=== PATIENT | female | born 1960 | race Caucasian/White ===

== ENCOUNTER 2019-04-27 15:06 | Emergency (ER) | payer MEDICAID, OTHER ==
[~2019-04-27] VITALS: Ht 160 cm; Wt 62.8 kg
[2019-04-27 15:10] VITALS: Ht 160 cm; Wt 62.8 kg
[2019-04-27] MEDS ORDERED: LISI10TA2 PO (15:53)
[2019-04-27] MEDS ORDERED: LEVO25TA6 PO (15:53)
[2019-04-27] MEDS ORDERED: BELLADONNA/PHENOBARBITAL TAB PO STA (16:05)
[2019-04-27] MEDS ORDERED: ONDANSETRON 4 MG INJ IV STA (16:05)
[2019-04-27] MEDS ORDERED: LIDOCAINE/MYLANTA 40 ML BTL PO STA (16:05)
[2019-04-27] MEDS ORDERED: LACTATED RINGER'S 1,000 ML IV STA ×2 (16:05→18:31)
[2019-04-27] MEDS ORDERED: FAMOTIDINE 20 MG TAB PO STA (16:05)
[2019-04-27] MEDS ORDERED: KETOROLAC 15 MG INJ IV STA (16:05)
--- NOTE | 2019-04-27 16:25 | ERD ---
ER Documentation Chief Complaint Chief Complaint AP , HX GALLSTONES X 2 YEARS HPI 59-year-old woman complains of suprapubic and right upper quadrant abdominal pain x4 to 5 days, she states 2 years ago she was diagnosed with gallstones via ultrasonography. She denies back pain, no fevers or chills, no vomiting or diarrhea, no complaints of chest pain or shortness of breath. Abdominal pain has been nonradiating nonexertional ROS All systems reviewed and are negative except as per history of present illness. Medications Home Meds Active Scripts Ondansetron Hcl* (Zofran*) 4 Mg Tablet, 4 MG PO Q8H PRN for NAUSEA AND/OR VOMITING, #30 TAB Prov:JEREMI LOPEZ MD 04/27/19 Ibuprofen* (Motrin*) 600 Mg Tab, 600 MG PO Q8 PRN for PAIN, #30 TAB Prov:JEREMI LOPEZ MD 04/27/19 Cephalexin* (Keflex*) 500 Mg Capsule, 500 MG PO QID for 7 Days, CAP Prov:JEREMI LOPEZ MD 04/27/19 Reported Medications Lisinopril* (Lisinopril*) 10 Mg Tablet, 10 MG PO DAILY, #30 TAB 04/27/19 Levothyroxine Sodium* (Levothyroxine Sodium*) 25 Mcg Tablet, 25 MCG PO BEFORE BREAKFAST, #30 TAB 04/27/19 Allergies Allergies: Coded Allergies: No Known Allergy (Unverified , 04/27/19) PMhx/Soc Anesthesia Reaction: No Hx Neurological Disorder: No Hx Respiratory Disorders: No Hx Cardiac Disorders: No Hx Psychiatric Problems: No Hx Miscellaneous Medical Probl: No Hx Alcohol Use: No Hx Substance Use: No Hx Tobacco Use: No Smoking Status: Never smoker FmHx Family History: No diabetes Physical Exam Vitals Vital Signs Date Temp Pulse Resp B/P (MAP) Pulse Ox O2 O2 Flow FiO2 Time Delivery Rate 04/27/19 98.3 93 19 148/73 100 Room Air 19:44 (98) 04/27/19 98.4 91 18 143/78 99 15:10 (99) Physical Exam GENERAL: Well-developed, well-nourished, well-hydrated, in no apparent distress, looks nontoxic in appearance HEENT: Moist mucous membranes, pink conjunctiva, no cervical spine tenderness or step-off deformities, no goiter, no jaundice or icterus, extraocular movements intact without pain. No submandibular induration, and no pharyngeal erythema NEURO: Alert and oriented 3, cranial nerves II through XII intact bilaterally, pupils equal round reactive to light, no focal deficits or facial asymmetry, sensation intact distally Strength 5/5 in upper and lower extremities bilaterally CARDIAC: Regular rate and rhythm, no murmurs rubs or gallops LUNGS: Clear bilaterally no wheezing crackles or stridor ABDOMEN: Soft nontender, no guarding, no rigidity, no rebound, no psoas sign no obturator sign. Normoactive bowel sounds SKIN: Warm and dry to touch, no abrasions, contusions, or hematomas, no lacerations, no ecchymosis, no target lesions, and without ulcers EXTREMITIES: No clubbing cyanosis or edema, calves are bilaterally symmetrical, no Homans sign, no popliteal cord sign. Distal pulses equal and bilateral PSYCH: Normal affect without agitation or irritability Result Diagram: 04/27/19 1610 04/27/19 1610 Results 24 hrs Laboratory Tests Test 04/27/19 16:10 White Blood Count 12.6 10^3/ul Red Blood Count 5.61 10^6/ul Hemoglobin 13.8 g/dl Hematocrit 43.8 % Mean Corpuscular Volume 78.1 fl Mean Corpuscular Hemoglobin 24.6 pg Mean Corpuscular Hemoglobin Concent 31.5 g/dl Red Cell Distribution Width 14.9 % Platelet Count 227 10^3/UL Mean Platelet Volume 9.4 fl Immature Granulocytes % 0.500 % Neutrophils % 89.5 % Lymphocytes % 6.6 % Monocytes % 3.2 % Eosinophils % 0.0 % Basophils % 0.2 % Nucleated Red Blood Cells % 0.0 /100WBC Immature Granulocytes # 0.060 10^3/ul Neutrophils # 11.3 10^3/ul Lymphocytes # 0.8 10^3/ul Monocytes # 0.4 10^3/ul Eosinophils # 0.0 10^3/ul Basophils # 0.0 10^3/ul Nucleated Red Blood Cells # 0.0 10^3/ul Urine Color CARMELA Urine Clarity CLOUDY Urine pH 6.0 Urine Specific [place] 1.021 Urine Ketones TRACE mg/dL Urine Nitrite POSITIVE mg/dL Urine Bilirubin NEGATIVE mg/dL Urine Urobilinogen 1+ mg/dL Urine Leukocyte Esterase 1+ Jesenia/ul Urine Microscopic RBC 2 /HPF Urine Microscopic WBC 52 /HPF Urine Squamous Epithelial Cells MODERATE /HPF Urine Bacteria FEW /HPF Urine Mucus MANY /HPF Urine Hemoglobin NEGATIVE mg/dL Urine Glucose NEGATIVE mg/dL Urine Total Protein NEGATIVE mg/dl Sodium Level 145 mmol/L Potassium Level 4.8 mmol/L Chloride Level 105 mmol/L Carbon Dioxide Level 29 mmol/L Anion Gap 11 Blood Urea Nitrogen 11 mg/dl Creatinine 0.67 mg/dl Est Glomerular Filtrat Rate mL/min > 60 mL/min Glucose Level 164 mg/dl Calcium Level 9.4 mg/dl Total Bilirubin 0.8 mg/dl Direct Bilirubin 0.00 mg/dl Indirect Bilirubin 0.8 mg/dl Aspartate Amino Transf (AST/SGOT) 147 IU/L Alanine Aminotransferase (ALT/SGPT) 105 IU/L Alkaline Phosphatase 179 IU/L Troponin I < 0.012 ng/ml Total Protein 8.6 g/dl Albumin 4.5 g/dl Globulin 4.10 g/dl Albumin/Globulin Ratio 1.09 Lipase 3924 U/L Current Medications Medications Dose Sig/Wen Start Time Status Last (Trade) Ordered Route PRN Stop Time Admin Dose Reason Admin Lactated 1,000 ml @ Q1H STAT 04/27/19 DC 04/27/19 Ringer's 1,000 mls/hr IV 16:05 16:19 04/27/19 17:04 Ondansetron 4 mg ONCE STAT 04/27/19 DC 04/27/19 HCl (Zofran IV 16:05 16:20 Inj) 04/27/19 16:07 Famotidine 20 mg ONCE STAT 04/27/19 DC 04/27/19 (Pepcid) PO 16:05 16:19 04/27/19 16:07 40 ml ONCE STAT 04/27/19 DC 04/27/19 Miscellaneous PO 16:05 16:20 Medication 04/27/19 16:07 (Gi Cocktail (2)) Belladonna/ 2 tab ONCE STAT 04/27/19 DC 04/27/19 Phenobarbital PO 16:05 16:20 () 04/27/19 16:07 Ketorolac 15 mg ONCE STAT 04/27/19 DC 04/27/19 Tromethamine IV 16:05 16:19 (Toradol) 6/11/19 16:07 Ceftriaxone 50 ml @ ONCE ONCE 04/27/19 DC 04/27/19 Sodium 100 mls/hr IVPB 19:00 18:42 04/27/19 19:29 Lactated 1,000 ml @ Q1H STAT 04/27/19 DC 04/27/19 Ringer's 1,000 mls/hr IV 18:31 18:42 04/27/19 19:30 Procedures/MDM IV line was established 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 Patient was afebrile EKG performed, read by me: 82 bpm, normal sinus rhythm, normal axis, no acute ST segment changes, narrow QRS complex, with good R-wave progression in precordial leads. I administered 1 L LR IV, Toradol 15mg IV, Zofran 4 mg IV, GI cocktail p.o., famotidine p.o. Gallbladder ultrasound revealed gallstones, no signs of cholecystitis although gallstones were noted and CBD was borderline dilated CBC was unremarkable, electrolytes within normal limits, liver function tests revealed transaminitis, lipase level elevated at 3924, urine analysis positive for infection Patient received 2 L LR IV, ceftriaxone 1 g IV, Toradol 15 mg IV, Zofran 4 mg IV, GI cocktail p.o., famotidine p.o. Patient's pain completely resolved and vital signs are normal, she is afebrile. She will require admission to [facility] for MRCP and GI consultation Patient's sons Sander [phone], Andre [phone] Departure Diagnosis: Primary Impression: Acute gallstone pancreatitis Additional Impression: Acute UTI Condition: Stable JEREMI LOPEZ MD Apr 27, 2019 16:25
[2019-04-27] MEDS ORDERED: CEPH-443 PO (18:49)
[2019-04-27] MEDS ORDERED: ONDA4TAB8 PO (18:49)
[2019-04-27] MEDS ORDERED: IBUP-1542 PO (18:49)
[2019-04-27] MEDS ORDERED: CEFTRIAXONE 1 GM/50 ML (PMX) 50 ML IVPB ONE (19:00)
[2019-04-27 19:44] VITALS: BP 148/73; PULSE 93; RESP 19
== END 2019-04-27 19:45 | disposition home or self-care (01) ==
LOC: E/R 15:06
DX: K85.10 Biliary acute pancreatitis without necrosis or infection (principal); N39.0 Urinary tract infection, site not specified
CPT/HCPCS: 36415; 76705; 80053; 81001; 83690; 84484; 85025; 93005; 96374; 96375; J0696; J1885; J2405; J7120; Z7502; Z7610

== ENCOUNTER 2019-04-27 20:20 | Inpatient (IN) | payer OTHER ==
[~2019-04-27] VITALS: Ht 160 cm; Wt 63.0 kg
[~2019-04-27 20:20] MED LIST: CEPH-443 PO; IBUP-1542 PO; LEVO25TA6 PO; LISI10TA2 PO; ONDA4TAB8 PO
[2019-04-27] MEDS ORDERED: HYDROmorphONE 1 MG/ML SYG IV STA (20:29)
[2019-04-27] MEDS ORDERED: SOD CHLORIDE 0.9% 1,000 ML IV STA (20:29)
[2019-04-27] MEDS ORDERED: ONDANSETRON 4 MG INJ IV STA (20:29)
--- NOTE | 2019-04-27 20:29 | EN ---
Date/Time of Note Date/Time of Note DATE: 04/27/19 TIME: 20:28 ER Progress Note I administered hydromorphone 1 mg IV and 1 L normal saline IV. Please refer to earlier dictation for full ER course, medical decision making, imaging results, and diagnostic impression. Initial account [id number]. Patient admitted to her health insurance directed physician engineer second assistant to Medr floor. JEREMI LOPEZ MD Apr 27, 2019 20:29
[2019-04-27] MEDS ORDERED: ONDANSETRON 4 MG INJ IV PRN (22:00)
[2019-04-27 22:24] VITALS: BP 140/70; PULSE 74; RESP 18; Ht 160 cm; Wt 63.0 kg
[2019-04-27] MEDS: DEXTROSE 5%-0.45% NACL 1,000 ML IV SCH (22:54)
[2019-04-27] MEDS: PIPER-TAZO 3.375 GM IV (PMX) 100 ML IVPB SCH (22:55)
[2019-04-28] MEDS: morphine 2 MG INJ IV PRN ×4 (01:06→19:29)
[2019-04-28 01:12] VITALS: BP 138/73; PULSE 100; RESP 20
[2019-04-28] MEDS: PIPER-TAZO 3.375 GM IV (PMX) 100 ML IVPB SCH ×3 (06:03→20:57)
[2019-04-28] MEDS: LEVOTHYROXINE 100 MCG VIAL IV SCH (06:04)
[2019-04-28] MEDS: DEXTROSE 5%-0.45% NACL 1,000 ML IV SCH ×3 (08:00→22:36)
[2019-04-28 08:25] VITALS: BP 125/62; PULSE 102; RESP 20
--- NOTE | 2019-04-28 13:38 | CONS ---
Assessment/Plan Assessment/Plan Hospital Course (Demo Recall) Summary Assessment and Plan: Assessment: Gallstone pancreatitis Elevated LFTs with a normal bilirubin Hypertension Hypothyroidism Plan: Keep n.p.o. Recommend hyperhydration for pancreatitis Medication as needed MRCP pending. If positive will proceed with ERCP after pancreatitis has improved/resolved Patient seen in collaboration with Dr. Osborne CC: CARLOS OSBORNE MD ; Consultation Date/Type/Reason Admit Date/Time Apr 27, 2019 at 20:31 Date of Consultation: Apr 28, 2019 Type of Consult GI Reason for Consultation Gallstone pink otitis Date/Time of Note DATE: 04/28/19 TIME: 13:36 Hx of Present Illness This is a 59-year-old female with past medical history of cholelithiasis, hypertension, hypothyroidism who presented to the hospital with complaints of progressive gastric pain radiating to the right upper quadrant associated with nausea and vomiting x1. Patient presented to the ED was ultimately diagnosed with gallstone pancreatitis including a lipase of 3924. With elevated LFTS and a normal bilirubin. She is currently n.p.o. and MRCP has been ordered which is currently pending is been consulted for further evaluation rule out choledocholithiasis. At time evaluation patient is n.p.o. she continues to complain of upper abdominal pain 5 out of 10 with the use of pain medication discussed plan for MRCP pending results will provide further recommendations Review of Systems: A 12 system, review was conducted and is negative except as noted in the HPI or here. Past Medical History Home Meds Active Scripts Ondansetron Hcl* (Zofran*) 4 Mg Tablet, 4 MG PO Q8H PRN for NAUSEA AND/OR VOMITING, #30 TAB Prov:JEREMI LOPEZ MD 04/27/19 Ibuprofen* (Motrin*) 600 Mg Tab, 600 MG PO Q8 PRN for PAIN, #30 TAB Prov:JEREMI LOPEZ MD 04/27/19 Cephalexin* (Keflex*) 500 Mg Capsule, 500 MG PO QID for 7 Days, CAP Prov:JEREMI LOPEZ MD 04/27/19 Reported Medications Lisinopril* (Lisinopril*) 10 Mg Tablet, 10 MG PO DAILY, #30 TAB 04/27/19 Levothyroxine Sodium* (Levothyroxine Sodium*) 25 Mcg Tablet, 25 MCG PO BEFORE BREAKFAST, #30 TAB 04/27/19 Medications Current Medications Dextrose/Sodium Chloride 1,000 ml @ 100 mls/hr Q10H IV Last administered on 04/28/19at 10:38; Admin Dose 100 MLS/HR; Start 04/27/19 at 22:00 Piperacillin Sod/ Tazobactam Sod 100 ml @ 200 mls/hr Q8 IVPB Last administered on 04/28/19at 13:15; Admin Dose 200 MLS/HR; Start 04/27/19 at 22:00 Ondansetron HCl (Zofran Inj) 4 mg Q4 PRN IV nausea; Start 04/27/19 at 22:00 Morphine Sulfate (morphine) 2 mg Q3 PRN IV pain Last administered on 04/28/19at 08:22; Admin Dose 2 MG; Start 04/27/19 at 22:00 Levothyroxine Sodium (Synthroid Iv) 20 mcg DAILY@06 IV Last administered on 04/28/19at 06:04; Admin Dose 20 MCG; Start 04/28/19 at 06:00 Allergies: Coded Allergies: No Known Allergy (Unverified , 04/27/19) Social History Smoking Status: Never smoker Exam/Review of Systems Exam Vitals Vital Signs Date Temp Pulse Resp B/P (MAP) Pulse Ox O2 O2 Flow FiO2 Time Delivery Rate 04/28/19 98.2 12:18 04/28/19 102 20 125/62 93 Room Air 08:25 (83) Intake and Output 04/27/19 04/27/19 04/28/19 1515:00 23:00 07:00 IntakeIntake Total 750 ml OutputOutput Total 150 ml BalanceBalance -150 ml 750 ml Exam PHYSICAL EXAMINATION: GENERAL: Well developed, well nourished, alert & oriented x 3, in no acute distress SKIN: No lesions HEAD: Normocephalic, atraumatic, no tenderness. EYES: Pupils equal reactive to light, no discharge. EARS/NOSE AND THROAT: Ears normal, nose normal, oropharynx normal, oral membranes well hydrated without lesions. NECK: Supple, no masses,. CHEST: Inspection within normal limits. CARDIOVASCULAR: Heart: Regular rate and rhythm, RESPIRATORY: Lungs clear to auscultation GASTROINTESTINAL AND LIVER: Abdomen: Soft, upper abdominal pain 5/10-worse to right upper quadrant, normoactive bowel sounds. Rectal: Deferred. EXTREMITIES: No cyanosis, clubbing or edema. Medications Medication Current Medications Dextrose/Sodium Chloride 1,000 ml @ 100 mls/hr Q10H IV Last administered on 04/28/19 10:38; Admin Dose 100 MLS/HR; Start 04/27/19 at 22:00 Piperacillin Sod/ Tazobactam Sod 100 ml @ 200 mls/hr Q8 IVPB Last administered on 04/28/19 13:15; Admin Dose 200 MLS/HR; Start 04/27/19 at 22:00 Ondansetron HCl (Zofran Inj) 4 mg Q4 PRN IV nausea; Start 04/27/19 at 22:00 Morphine Sulfate (morphine) 2 mg Q3 PRN IV pain Last administered on 04/28/19at 08:22; Admin Dose 2 MG; Start 04/27/19 at 22:00 Levothyroxine Sodium (Synthroid Iv) 20 mcg DAILY@06 IV Last administered on 04/28/19 06:04; Admin Dose 20 MCG; Start 04/28/19 at 06:00 JONNY CHINO Apr 28, 2019 13:38
[2019-04-28 13:45] VITALS: BP 126/62; RESP 19
--- NOTE | 2019-04-28 14:00 | HP ---
Date/Time of Note Date/Time of Note DATE: 04/28/19 TIME: 13:53 Assessment/Plan VTE Prophylaxis Risk score (from Ns)>0 risk: 1 SCD applied (from Ns): Yes Pharmacological prophylaxis: heparin Lines/Catheters IV Catheter Type (from Nrsg): Peripheral IV Assessment/Plan Problems: (1) Acute UTI Status: Acute (2) Acute gallstone pancreatitis Status: Acute Assessment/Plan Admit to [facility] unit IV Zosyn MRCP and GI consult Surgical consult according to MRCP results Pain and nausea management PPX: Heparin and Pepcid HPI/ROS Admit Date/Time Admit Date/Time Apr 27, 2019 at 20:31 Hx of Present Illness 59 years old female with a history of hypothyroidism, cholelithiasis who presented with epigastric abdominal pain for 1 day yesterday. She was discharged home from the emergency room. She returned to the emergency room today when elevated liver enzymes and lipase were noted. Abdominal ultrasound was significant for Heterogeneous pancreas with a slightly dilated pancreatic duct. She was then admitted for further evaluation and treatment of gallstone pancreatitis. As part of the work-up urinalysis was done which was positive. Patient denies change in bowel habits. Denies hematemesis, hematochezia, melena. Denies flank pain. Denies dysuria, urinary frequency. Denies vaginal bleeding. Denies fever or chills. Denies weight loss or weight gain. PMH/Family/Social Past Medical History Medications Current Medications Dextrose/Sodium Chloride 1,000 ml @ 100 mls/hr Q10H IV Last administered on 04/28/19at 10:38; Admin Dose 100 MLS/HR; Start 04/27/19 at 22:00 Piperacillin Sod/ Tazobactam Sod 100 ml @ 200 mls/hr Q8 IVPB Last administered on 04/28/19at 13:15; Admin Dose 200 MLS/HR; Start 04/27/19 at 22:00 Ondansetron HCl (Zofran Inj) 4 mg Q4 PRN IV nausea; Start 04/27/19 at 22:00 Morphine Sulfate (morphine) 2 mg Q3 PRN IV pain Last administered on 04/28/19at 08:22; Admin Dose 2 MG; Start 04/27/19 at 22:00 Levothyroxine Sodium (Synthroid Iv) 20 mcg DAILY@06 IV Last administered on 04/28/19at 06:04; Admin Dose 20 MCG; Start 04/28/19 at 06:00 Coded Allergies: No Known Allergy (Unverified , 04/27/19) Social History Smoking Status: Never smoker Exam/Review of Systems Vital Signs Vitals Vital Signs Date Temp Pulse Resp B/P (MAP) Pulse Ox O2 O2 Flow FiO2 Time Delivery Rate 04/28/19 98.2 12:18 04/28/19 102 20 125/62 93 Room Air 08:25 (83) Intake and Output 04/27/19 04/27/19 04/28/19 1515:00 23:00 07:00 IntakeIntake Total 750 ml OutputOutput Total 150 ml BalanceBalance -150 ml 750 ml Exam Exam Gen.: In no acute distress, pleasant and cooperative Eyes: Anicteric, conjunctiva normal, PERRLA, EOM intact HEENT: Normocephalic, atraumatic, hearing grossly intact, oral mucosa moist, no oral lesions Neck: Supple, no masses, trachea midline Cardiovascular: Regular rate and rhythm, no peripheral edema, no murmurs, no gallops, no rubs Respiratory: Clear to auscultation bilaterally, no use of accessory muscles of respiration, no wheezes, expiration not prolonged Extremities: No cyanosis, no edema, no calf tenderness, pulses bilaterally palpable, extremities warm and perfused Abdomen: Soft, not distended, tender to light palpation in right upper quadrant and epigastric area, bowel sounds present, no guarding, no rebound Neurological: Alert and oriented x3, speech normal, CN 2-12 no deficit, no motor or sensory deficit, coordination normal : No Delarosa catheter Dermatologic no rash, no ulcers Heme: No acute bleeding, no ecchymosis or petechia Psych: No anxiety depression, mood and affect appropriate LANIE BANKS MD Apr 28, 2019 14:00
[2019-04-28 19:40] VITALS: BP 130/65; PULSE 99; RESP 20
[2019-04-28] MEDS: FAMOTIDINE 20 MG INJ IV SCH (20:57)
[2019-04-28] MEDS: HEPARIN 5,000 UNIT/1 ML VIAL SC SCH (21:02)
[2019-04-28] MEDS ORDERED: ACETAMINOPHEN 500 MG TAB PO PRN (21:30)
[2019-04-29 02:00] VITALS: BP 96/59; PULSE 80; RESP 20
[2019-04-29] MEDS: PIPER-TAZO 3.375 GM IV (PMX) 100 ML IVPB SCH ×3 (05:26→21:59)
[2019-04-29] MEDS: LEVOTHYROXINE 100 MCG VIAL IV SCH (05:26)
[2019-04-29 08:18] VITALS: BP 115/58; PULSE 91; RESP 18
[2019-04-29] MEDS: FAMOTIDINE 20 MG INJ IV SCH ×2 (08:40→20:35)
[2019-04-29] MEDS: DEXTROSE 5%-0.45% NACL 1,000 ML IV SCH ×2 (08:41→19:21)
[2019-04-29] MEDS: HEPARIN 5,000 UNIT/1 ML VIAL SC SCH (08:42)
[2019-04-29] MEDS: morphine 2 MG INJ IV PRN ×2 (09:32→13:06)
--- NOTE | 2019-04-29 12:43 | CONS ---
Assessment/Plan Assessment/Plan Hospital Course (Demo Recall) 1. Gallstone pancreatitis: Improved -Aggressive IV Fluid -Okay for liquid diet -0 pain management 2. Cholelithiasis, concern for cholecystitis: -Discussed surgical options with patient and patient agreeable for cholecystectomy> will schedule -Antibiotics 3.Leukocytosis: -As above -Trend 4. Microcytic hypochromic anemia: -Monitor and transfuse as needed -Further work-up per medical team 5. Hypothyroidism -Medical management 6. Overweight BMI: 25 -diet and exercise optimization -encourage weight loss Thank you. Patient seen and examined in collaboration with Dr. Freddie Strange. Consultation Date/Type/Reason Admit Date/Time Apr 27, 2019 at 20:31 Type of Consult surgical Reason for Consultation gallstones Requesting Provider: LANIE BANKS MD Date/Time of Note DATE: 04/29/19 TIME: 12:34 Hx of Present Illness Blanquita Solares is a 59-year-old woman with past medical history of hypothyroidism and cholelithiasis who presented to the ED with complaints of abdominal pain x1 day. Abdominal pain is predominantly in the mid epigastric region with radiation to bilateral upper quadrants, strong in nature. She reports that this pain is similar to when she experienced several years ago where she was initially diagnosed with gallstones. Associated symptoms include recent fevers. She denies,chills chest pain, palpitations, nausea, vomiting, hematemesis, change in bowel or bladder habits, dysuria, skin or scleral changes. On further work-up, she was noted to have elevated liver enzymes as well as lipase. Abdominal imaging noted cholelithiasis with borderline gallbladder wall thickening as well as mild jimenez-cholecystic fluid. Addition ally noted was moderate inflammatory changes around pancreas consistent with acute pancreatitis. General surgery was asked to evaluate. 12 point ros was performed and is negative except as stated in hpi Past Medical History As above Home Meds Active Scripts Ondansetron Hcl* (Zofran*) 4 Mg Tablet, 4 MG PO Q8H PRN for NAUSEA AND/OR VOMITING, #30 TAB Prov:JEREMI LOPEZ MD 04/27/19 Ibuprofen* (Motrin*) 600 Mg Tab, 600 MG PO Q8 PRN for PAIN, #30 TAB Prov:JEREMI LOPEZ MD 04/27/19 Cephalexin* (Keflex*) 500 Mg Capsule, 500 MG PO QID for 7 Days, CAP Prov:JEREMI LOPEZ MD 04/27/19 Reported Medications Lisinopril* (Lisinopril*) 10 Mg Tablet, 10 MG PO DAILY, #30 TAB 04/27/19 Levothyroxine Sodium* (Levothyroxine Sodium*) 25 Mcg Tablet, 25 MCG PO BEFORE BREAKFAST, #30 TAB 04/27/19 Medications Current Medications Dextrose/Sodium Chloride 1,000 ml @ 100 mls/hr Q10H IV Last administered on 04/29/19at 08:41; Admin Dose 100 MLS/HR; Start 04/27/19 at 22:00 Piperacillin Sod/ Tazobactam Sod 100 ml @ 200 mls/hr Q8 IVPB Last administered on 04/29/19 05:26; Admin Dose 200 MLS/HR; Start 04/27/19 at 22:00 Ondansetron HCl (Zofran Inj) 4 mg Q4 PRN IV nausea; Start 04/27/19 at 22:00 Morphine Sulfate (morphine) 2 mg Q3 PRN IV pain Last administered on 04/29/19at 09:32; Admin Dose 2 MG; Start 04/27/19 at 22:00 Levothyroxine Sodium (Synthroid Iv) 20 mcg DAILY@06 IV Last administered on 04/29/19 05:26; Admin Dose 20 MCG; Start 04/28/19 at 06:00 Famotidine (Pepcid Iv) 20 mg BID IV Last administered on 04/29/19 08:40; Admin Dose 20 MG; Start 04/28/19 at 21:00 Heparin Sodium (Porcine) (Heparin (5000 Units/1ml)) 5,000 unit BID SC Last administered on 04/29/19 08:42; Admin Dose 5,000 UNIT; Start 04/28/19 at 21:00 Acetaminophen (Tylenol Tab) 1,000 mg Q6H PRN PO MILD PAIN(1-3)OR ELEVATED TEMP Last administered on 04/28/19 22:33; Admin Dose 1,000 MG; Start 04/28/19 at 21:30 Allergies: Coded Allergies: No Known Allergy (Unverified , 04/27/19) Past Surgical History Family History Significant Family History: no pertinent family hx Social History Alcohol Use: occasionally Smoking Status: Never smoker Drug Use: none Exam/Review of Systems Exam Vitals Vital Signs Date Temp Pulse Resp B/P (MAP) Pulse Ox O2 O2 Flow FiO2 Time Delivery Rate 04/29/19 98.2 91 18 115/58 92 Room Air 08:18 (77) Intake and Output 04/28/19 04/28/19 04/29/19 1515:00 23:00 07:00 IntakeIntake Total 550 ml 1100 ml 600 ml BalanceBalance 550 ml 1100 ml 600 ml Constitutional: alert, oriented Psych: nl mood/affect; No anxiety Head: normocephalic, atraumatic Eyes: nl conjunctiva, EOMI, nl lids, nl sclera ENMT: nl external ears & nose, nl lips & teeth, mucosa pink and moist Neck: supple, non-tender; No jvd Respiratory: normal air movement; No congested cough Cardiovascular: regular rate and rhythm, nl pulses; No edema Gastrointestinal: soft, tender (Bilateral upper quadrants; negative Valle's by palpation) Genitourinary - Female: nl external genitalia Musculoskeletal: nl extremities to inspection, nl gait and stance Extremities: normal pulses Neurological: nl mental status, nl speech, nl strength Skin: No rash or lesions Lymph: nl lymph nodes Results Result Diagram: 04/29/19 0458 04/29/19 0458 Results 24hrs Laboratory Tests Test 04/29/19 04:58 04/29/19 09:12 White Blood Count 11.4 H Red Blood Count 4.39 # Hemoglobin 10.7 #L Hematocrit 34.8 #L Mean Corpuscular Volume 79.3 L Mean Corpuscular Hemoglobin 24.4 L Mean Corpuscular Hemoglobin Concent 30.7 L Red Cell Distribution Width 15.3 H Platelet Count 170 # Mean Platelet Volume 10.2 Immature Granulocytes % 0.800 H Neutrophils % 77.6 H Lymphocytes % 13.7 L Monocytes % 7.6 Eosinophils % 0.0 Basophils % 0.3 Nucleated Red Blood Cells % 0.0 Immature Granulocytes # 0.090 H Neutrophils # 8.9 H Lymphocytes # 1.6 Monocytes # 0.9 Eosinophils # 0.0 Basophils # 0.0 Nucleated Red Blood Cells # 0.0 Sodium Level 142 Potassium Level 3.7 Chloride Level 106 Carbon Dioxide Level 30 Anion Gap 6 Blood Urea Nitrogen 6 L Creatinine 0.57 Est Glomerular Filtrat Rate mL/min > 60 Glucose Level 128 Calcium Level 8.3 L Phosphorus Level 2.9 Magnesium Level 2.2 Total Bilirubin 0.8 Direct Bilirubin 0.00 Indirect Bilirubin 0.8 Aspartate Amino Transf (AST/SGOT) 32 Alanine Aminotransferase (ALT/SGPT) 46 Alkaline Phosphatase 96 Total Protein 6.7 # Albumin 3.5 # Globulin 3.20 Albumin/Globulin Ratio 1.09 Lipase 325 H Medications Medication Current Medications Dextrose/Sodium Chloride 1,000 ml @ 100 mls/hr Q10H IV Last administered on 04/29/19 08:41; Admin Dose 100 MLS/HR; Start 04/27/19 at 22:00 Piperacillin Sod/ Tazobactam Sod 100 ml @ 200 mls/hr Q8 IVPB Last administered on 04/29/19 05:26; Admin Dose 200 MLS/HR; Start 04/27/19 at 22:00 Ondansetron HCl (Zofran Inj) 4 mg Q4 PRN IV nausea; Start 04/27/19 at 22:00 Morphine Sulfate (morphine) 2 mg Q3 PRN IV pain Last administered on 04/29/19 09:32; Admin Dose 2 MG; Start 04/27/19 at 22:00 Levothyroxine Sodium (Synthroid Iv) 20 mcg DAILY@06 IV Last administered on 04/29/19 05:26; Admin Dose 20 MCG; Start 04/28/19 at 06:00 Famotidine (Pepcid Iv) 20 mg BID IV Last administered on 04/29/19 08:40; Admin Dose 20 MG; Start 04/28/19 at 21:00 Heparin Sodium (Porcine) (Heparin (5000 Units/1ml)) 5,000 unit BID SC Last administered on 04/29/19 08:42; Admin Dose 5,000 UNIT; Start 04/28/19 at 21:00 Acetaminophen (Tylenol Tab) 1,000 mg Q6H PRN PO MILD PAIN(1-3)OR ELEVATED TEMP Last administered on 04/28/19 22:33; Admin Dose 1,000 MG; Start 04/28/19 at 21:30 MECCA KIM NP Apr 29, 2019 12:43
--- NOTE | 2019-04-29 13:26 | PN ---
Date/Time of Note Date/Time of Note DATE: 04/29/19 TIME: 13:24 Assessment/Plan VTE Prophylaxis Risk score (from Ns)>0 risk: 2 SCD applied (from Nsg): Yes Pharmacological prophylaxis: other (scds) Lines/Catheters IV [facility]ter [facility] (from [facility]): Peripheral IV Assessment/Plan Hospital Course Summary Assessment and Plan: Assessment: Gallstone pancreatitis- imporved -MRCP-Cholelithiasis is present with indeterminate finding for cholecystitis. No intraductal stones are visible on MRCP Cholecystitis versus symptomatic cholelithiasis Elevated LFTs with normal bilirubin-resolved Microcytic anemia Hypertension Hypothyroidism Plan: Patient evaluated by surgery plan for cholecystectomy near future Patient is been started on liquid diet Continue supportive care Patient seen in collaboration with Dr. Osborne Subjective: Course reviewed with nursing staff Patient interviewed and examined All labs, imaging and other results reviewed The patient states she feels better today Currently abd pain is about 2/10 with pain medication Pain can get up to 6-8/10 without medication- this abd pain is localized to RUQ likely 2/2 cholecystitis PHYSICAL EXAMINATION: GENERAL: Well developed, well nourished, alert & oriented x 3, in no acute distress SKIN: No lesions HEAD: Normocephalic, atraumatic, no tenderness. EYES: Pupils equal reactive to light, no discharge. EARS/NOSE AND THROAT: Ears normal, nose normal, oropharynx normal, oral membranes well hydrated without lesions. NECK: Supple, no masses,. CHEST: Inspection within normal limits. CARDIOVASCULAR: Heart: Regular rate and rhythm, RESPIRATORY: Lungs clear to auscultation GASTROINTESTINAL AND LIVER: Abdomen: Soft, upper abdominal pain 5/10-worse to right upper quadrant, normoactive bowel sounds. Rectal: Deferred. EXTREMITIES: No cyanosis, clubbing or edema. Result Diagram: 04/29/19 0458 04/29/19 0458 Results 24hrs Laboratory Tests Test 04/29/19 04:58 04/29/19 09:12 White Blood Count 11.4 H Red Blood Count 4.39 # Hemoglobin 10.7 #L Hematocrit 34.8 #L Mean Corpuscular Volume 79.3 L Mean Corpuscular Hemoglobin 24.4 L Mean Corpuscular Hemoglobin Concent 30.7 L Red Cell Distribution Width 15.3 H Platelet Count 170 # Mean Platelet Volume 10.2 Immature Granulocytes % 0.800 H Neutrophils % 77.6 H Lymphocytes % 13.7 L Monocytes % 7.6 Eosinophils % 0.0 Basophils % 0.3 Nucleated Red Blood Cells % 0.0 Immature Granulocytes # 0.090 H Neutrophils # 8.9 H Lymphocytes # 1.6 Monocytes # 0.9 Eosinophils # 0.0 Basophils # 0.0 Nucleated Red Blood Cells # 0.0 Sodium Level 142 Potassium Level 3.7 Chloride Level 106 Carbon Dioxide Level 30 Anion Gap 6 Blood Urea Nitrogen 6 L Creatinine 0.57 Est Glomerular Filtrat Rate mL/min > 60 Glucose Level 128 Calcium Level 8.3 L Phosphorus Level 2.9 Magnesium Level 2.2 Total Bilirubin 0.8 Direct Bilirubin 0.00 Indirect Bilirubin 0.8 Aspartate Amino Transf (AST/SGOT) 32 Alanine Aminotransferase (ALT/SGPT) 46 Alkaline Phosphatase 96 Total Protein 6.7 # Albumin 3.5 # Globulin 3.20 Albumin/Globulin Ratio 1.09 Lipase 325 H Exam/Review of Systems Exam Vitals Vital Signs Date Temp Pulse Resp B/P (MAP) Pulse Ox O2 O2 Flow FiO2 Time Delivery Rate 04/29/19 98.2 91 18 115/58 92 Room Air 08:18 (77) Intake and Output 04/28/19 04/28/19 04/29/19 1515:00 23:00 07:00 IntakeIntake Total 550 ml 1100 ml 600 ml BalanceBalance 550 ml 1100 ml 600 ml Results Results 24hrs Laboratory Tests Test 04/29/19 04:58 04/29/19 09:12 White Blood Count 11.4 H Red Blood Count 4.39 # Hemoglobin 10.7 #L Hematocrit 34.8 #L Mean Corpuscular Volume 79.3 L Mean Corpuscular Hemoglobin 24.4 L Mean Corpuscular Hemoglobin Concent 30.7 L Red Cell Distribution Width 15.3 H Platelet Count 170 # Mean Platelet Volume 10.2 Immature Granulocytes % 0.800 H Neutrophils % 77.6 H Lymphocytes % 13.7 L Monocytes % 7.6 Eosinophils % 0.0 Basophils % 0.3 Nucleated Red Blood Cells % 0.0 Immature Granulocytes # 0.090 H Neutrophils # 8.9 H Lymphocytes # 1.6 Monocytes # 0.9 Eosinophils # 0.0 Basophils # 0.0 Nucleated Red Blood Cells # 0.0 Sodium Level 142 Potassium Level 3.7 Chloride Level 106 Carbon Dioxide Level 30 Anion Gap 6 Blood Urea Nitrogen 6 L Creatinine 0.57 Est Glomerular Filtrat Rate mL/min > 60 Glucose Level 128 Calcium Level 8.3 L Phosphorus Level 2.9 Magnesium Level 2.2 Total Bilirubin 0.8 Direct Bilirubin 0.00 Indirect Bilirubin 0.8 Aspartate Amino Transf (AST/SGOT) 32 Alanine Aminotransferase (ALT/SGPT) 46 Alkaline Phosphatase 96 Total Protein 6.7 # Albumin 3.5 # Globulin 3.20 Albumin/Globulin Ratio 1.09 Lipase 325 H Medications Medication Current Medications Dextrose/Sodium Chloride 1,000 ml @ 100 mls/hr Q10H IV Last administered on 04/29/19 08:41; Admin Dose 100 MLS/HR; Start 04/27/19 at 22:00 Piperacillin Sod/ Tazobactam Sod 100 ml @ 200 mls/hr Q8 IVPB Last administered on 04/29/19 13:06; Admin Dose 200 MLS/HR; Start 04/27/19 at 22:00 Ondansetron HCl (Zofran Inj) 4 mg Q4 PRN IV nausea; Start 04/27/19 at 22:00 Morphine Sulfate (morphine) 2 mg Q3 PRN IV pain Last administered on 04/29/19 13:06; Admin Dose 2 MG; Start 04/27/19 at 22:00 Levothyroxine Sodium (Synthroid Iv) 20 mcg DAILY@06 IV Last administered on 04/29/19 05:26; Admin Dose 20 MCG; Start 04/28/19 at 06:00 Famotidine (Pepcid Iv) 20 mg BID IV Last administered on 04/29/19 08:40; Admin Dose 20 MG; Start 04/28/19 at 21:00 Heparin Sodium (Porcine) (Heparin (5000 Units/1ml)) 5,000 unit BID SC Last administered on 04/29/19 08:42; Admin Dose 5,000 UNIT; Start 04/28/19 at 21:00; Status Hold Acetaminophen (Tylenol Tab) 1,000 mg Q6H PRN PO MILD PAIN(1-3)OR ELEVATED TEMP Last administered on 04/28/19 22:33; Admin Dose 1,000 MG; Start 04/28/19 at 21:30 JONNY CHINO Apr 29, 2019 13:26
[2019-04-29 14:07] VITALS: BP 122/59; PULSE 95; RESP 18
--- NOTE | 2019-04-29 15:01 | PREAC ---
Date/Time of Note Date/Time of Note DATE: 04/29/19 TIME: 15:01 Anesthesia Eval and Record Evaluation Time Pre-Procedure Interview DATE: 04/29/19 TIME: 15:00 Age 59 Sex female NPO: 8 hrs Preoperative diagnosis Acute gallstone pancreatitis Planned procedure LAPAROSCOPIC CHOLECYSTECTOMY POSS OPEN Past Medical History Past Medical History: Includes Cardio: HTN Endo: Hypothyroid Heme: Anemia Surgery & Anesthesia Issues No known issue Meds Anticoagulation: No Beta Cam within 24 hr: No Reason Beta Cam not given: Pt. not on B-Cam Active Scripts Ondansetron Hcl* (Zofran*) 4 Mg Tablet, 4 MG PO Q8H PRN for NAUSEA AND/OR VOMITING, #30 TAB Prov:JEREMI LOPEZ MD 04/27/19 Ibuprofen* (Motrin*) 600 Mg Tab, 600 MG PO Q8 PRN for PAIN, #30 TAB Prov:JEREMI LOPEZ MD 04/27/19 Cephalexin* (Keflex*) 500 Mg Capsule, 500 MG PO QID for 7 Days, CAP Prov:JEREMI LOPEZ MD 04/27/19 Reported Medications Lisinopril* (Lisinopril*) 10 Mg Tablet, 10 MG PO DAILY, #30 TAB 04/27/19 Levothyroxine Sodium* (Levothyroxine Sodium*) 25 Mcg Tablet, 25 MCG PO BEFORE BREAKFAST, #30 TAB 04/27/19 Current Medications Dextrose/Sodium Chloride 1,000 ml @ 100 mls/hr Q10H IV Last administered on 04/29/19at 08:41; Admin Dose 100 MLS/HR; Start 04/27/19 at 22:00 Piperacillin Sod/ Tazobactam Sod 100 ml @ 200 mls/hr Q8 IVPB Last administered on 04/29/19at 13:06; Admin Dose 200 MLS/HR; Start 04/27/19 at 22:00 Ondansetron HCl (Zofran Inj) 4 mg Q4 PRN IV nausea; Start 04/27/19 at 22:00 Morphine Sulfate (morphine) 2 mg Q3 PRN IV pain Last administered on 04/29/19at 13:06; Admin Dose 2 MG; Start 04/27/19 at 22:00 Levothyroxine Sodium (Synthroid Iv) 20 mcg DAILY@06 IV Last administered on 04/29/19at 05:26; Admin Dose 20 MCG; Start 04/28/19 at 06:00 Famotidine (Pepcid Iv) 20 mg BID IV Last administered on 04/29/19at 08:40; Admin Dose 20 MG; Start 04/28/19 at 21:00 Heparin Sodium (Porcine) (Heparin (5000 Units/1ml)) 5,000 unit BID SC Last administered on 04/29/19at 08:42; Admin Dose 5,000 UNIT; Start 04/28/19 at 21:00; Status Hold Acetaminophen (Tylenol Tab) 1,000 mg Q6H PRN PO MILD PAIN(1-3)OR ELEVATED TEMP Last administered on 04/28/19at 22:33; Admin Dose 1,000 MG; Start 04/28/19 at 21:30 Meds reviewed: Yes Allergies Coded Allergies: No Known Allergy (Unverified , 04/27/19) Allergies Reviewed: Yes Labs/Studies Labs Reviewed: Reviewed by anesthesiologist Result Diagram: 04/29/19 0458 04/29/19 0458 Laboratory Tests 04/29/19 04:58 test: N/A Studies: ECG (SR) Pre-procedure Exam Last vitals Vital Signs Date Temp Pulse Resp B/P (MAP) Pulse Ox O2 O2 Flow FiO2 Time Delivery Rate 04/29/19 98.0 95 18 122/59 95 Room Air 14:07 (80) Airway: Adequate mouth opening Mallampati: Mallampati II Teeth: Normal Lung: Normal Heart: Normal ASA Physical Status ASA physical status: 2 Emergency: None Planned Anesthetic General/MAC: ETT Pre-operative Attestations Prior to commencing anesthesia and surgery, the patient was re-evaluated, there was verification of: *The patient's identity *The results of appropriate recent lab work and preoperative vital signs *The above evaluation not changing prior to induction *Anesthetic plan, risk benefits, alternative and complications discussed with patient/family; questions answered; patient/family understands, accepts and wishes to proceed. KENZIE PAZ Apr 29, 2019 15:01
--- NOTE | 2019-04-29 19:05 | PN ---
Date/Time of Note Date/Time of Note DATE: 04/29/19 TIME: 19:04 Assessment/Plan VTE Prophylaxis Risk score (from Ns)>0 risk: 2 SCD applied (from Nsg): Yes Pharmacological prophylaxis: heparin Lines/Catheters IV Catheter Type (from Nrs): Peripheral IV Assessment/Plan Hospital Course 59 female with history of HTN, hypothyroidism who PW epigastric and RUQ abd pain in the setting of gallstone pancreatitis . MRCP was unremarkable for pathology in the biliary tract and suggestive of cholecystitis . General surgery was consulted for cholecystectomy . Lipase significantly improved - Pain and nausea management - IV Zosyn - Awaiting cholecystectomy - PPX: Heparin and Pepcid Problems: (1) Acute gallstone pancreatitis Status: Acute (2) Acute cholecystitis (3) RUQ abdominal pain Result Diagram: 04/29/19 0458 04/29/19 0458 Results 24hrs Laboratory Tests Test 04/29/19 04:58 04/29/19 09:12 04/29/19 14:35 04/29/19 14:52 White Blood Count 11.4 H Red Blood Count 4.39 # Hemoglobin 10.7 #L Hematocrit 34.8 #L Mean Corpuscular 79.3 L Volume Mean Corpuscular 24.4 L Hemoglobin Mean Corpuscular 30.7 L Hemoglobin Concent Red Cell 15.3 H Distribution Width Platelet Count 170 # Mean Platelet Volume 10.2 Immature 0.800 H Granulocytes % Neutrophils % 77.6 H Lymphocytes % 13.7 L Monocytes % 7.6 Eosinophils % 0.0 Basophils % 0.3 Nucleated Red Blood 0.0 Cells % Immature 0.090 H Granulocytes # Neutrophils # 8.9 H Lymphocytes # 1.6 Monocytes # 0.9 Eosinophils # 0.0 Basophils # 0.0 Nucleated Red Blood 0.0 Cells # Sodium Level 142 Potassium Level 3.7 Chloride Level 106 Carbon Dioxide Level 30 Anion Gap 6 Blood Urea Nitrogen 6 L Creatinine 0.57 Est Glomerular > 60 Filtrat Rate mL/min Glucose Level 128 Calcium Level 8.3 L Phosphorus Level 2.9 Magnesium Level 2.2 Total Bilirubin 0.8 Direct Bilirubin 0.00 Indirect Bilirubin 0.8 Aspartate Amino 32 Transf (AST/SGOT) Alanine 46 Aminotransferase (AL T/SGPT) Alkaline Phosphatase 96 Total Protein 6.7 # Albumin 3.5 # Globulin 3.20 Albumin/Globulin 1.09 Ratio Lipase 325 H Urine Test NEGATIVE Prothrombin Time 14.8 Prothrombin Time 1.2 Ratio INR International 1.15 Normalized Ratio Subjective 24 Hr Interval Summary Free Text/Dictation Pain has improved , had a fever last night , Exam/Review of Systems Exam Vitals Vital Signs Date Temp Pulse Resp B/P (MAP) Pulse Ox O2 O2 Flow FiO2 Time Delivery Rate 04/29/19 98.0 95 18 122/59 95 Room Air 14:07 (80) Intake and Output 04/28/19 04/28/19 04/29/19 1515:00 23:00 07:00 IntakeIntake Total 550 ml 1100 ml 600 ml BalanceBalance 550 ml 1100 ml 600 ml Exam Gen.: In no acute distress, pleasant and cooperative Eyes: Anicteric, conjunctiva normal, PERRLA, EOM intact HEENT: Normocephalic, atraumatic, hearing grossly intact, oral mucosa moist, no oral lesions Neck: Supple, no masses, trachea midline Cardiovascular: Regular rate and rhythm, no peripheral edema, no murmurs, no gallops, no rubs Respiratory: Clear to auscultation bilaterally, no use of accessory muscles of respiration, no wheezes, expiration not prolonged Extremities: No cyanosis, no edema, no calf tenderness, pulses bilaterally palpable, extremities warm and perfused Abdomen: Soft, not distended, tender to light palpation in right upper quadrant and epigastric area, bowel sounds present, no guarding, no rebound Neurological: Alert and oriented x3, speech normal, CN 2-12 no deficit, no motor or sensory deficit, coordination normal : No Delarosa catheter Dermatologic no rash, no ulcers Heme: No acute bleeding, no ecchymosis or petechia Psych: No anxiety depression, mood and affect appropriate Results Results 24hrs Laboratory Tests Test 04/29/19 04:58 04/29/19 09:12 04/29/19 14:35 04/29/19 14:52 White Blood Count 11.4 H Red Blood Count 4.39 # Hemoglobin 10.7 #L Hematocrit 34.8 #L Mean Corpuscular 79.3 L Volume Mean Corpuscular 24.4 L Hemoglobin Mean Corpuscular 30.7 L Hemoglobin Concent Red Cell 15.3 H Distribution Width Platelet Count 170 # Mean Platelet Volume 10.2 Immature 0.800 H Granulocytes % Neutrophils % 77.6 H Lymphocytes % 13.7 L Monocytes % 7.6 Eosinophils % 0.0 Basophils % 0.3 Nucleated Red Blood 0.0 Cells % Immature 0.090 H Granulocytes # Neutrophils # 8.9 H Lymphocytes # 1.6 Monocytes # 0.9 Eosinophils # 0.0 Basophils # 0.0 Nucleated Red Blood 0.0 Cells # Sodium Level 142 Potassium Level 3.7 Chloride Level 106 Carbon Dioxide Level 30 Anion Gap 6 Blood Urea Nitrogen 6 L Creatinine 0.57 Est Glomerular > 60 Filtrat Rate mL/min Glucose Level 128 Calcium Level 8.3 L Phosphorus Level 2.9 Magnesium Level 2.2 Total Bilirubin 0.8 Direct Bilirubin 0.00 Indirect Bilirubin 0.8 Aspartate Amino 32 Transf (AST/SGOT) Alanine 46 Aminotransferase (AL T/SGPT) Alkaline Phosphatase 96 Total Protein 6.7 # Albumin 3.5 # Globulin 3.20 Albumin/Globulin 1.09 Ratio Lipase 325 H Urine Test NEGATIVE Prothrombin Time 14.8 Prothrombin Time 1.2 Ratio INR International 1.15 Normalized Ratio Medications Medication Current Medications Dextrose/Sodium Chloride 1,000 ml @ 100 mls/hr Q10H IV Last administered on 04/29/19 08:41; Admin Dose 100 MLS/HR; Start 04/27/19 at 22:00 Piperacillin Sod/ Tazobactam Sod 100 ml @ 200 mls/hr Q8 IVPB Last administered on 04/29/19 13:06; Admin Dose 200 MLS/HR; Start 04/27/19 at 22:00 Ondansetron HCl (Zofran Inj) 4 mg Q4 PRN IV nausea; Start 04/27/19 at 22:00 Morphine Sulfate (morphine) 2 mg Q3 PRN IV pain Last administered on 04/29/19 13:06; Admin Dose 2 MG; Start 04/27/19 at 22:00 Levothyroxine Sodium (Synthroid Iv) 20 mcg DAILY@06 IV Last administered on 04/29/19 05:26; Admin Dose 20 MCG; Start 04/28/19 at 06:00 Famotidine (Pepcid Iv) 20 mg BID IV Last administered on 04/29/19 08:40; Admin Dose 20 MG; Start 04/28/19 at 21:00 Heparin Sodium (Porcine) (Heparin (5000 Units/1ml)) 5,000 unit BID SC Last administered on 04/29/19 08:42; Admin Dose 5,000 UNIT; Start 04/28/19 at 21:00; Status Hold Acetaminophen (Tylenol Tab) 1,000 mg Q6H PRN PO MILD PAIN(1-3)OR ELEVATED TEMP Last administered on 04/28/19 22:33; Admin Dose 1,000 MG; Start 04/28/19 at 21:30 LANIE BANKS MD Apr 29, 2019 19:05
[2019-04-29 20:25] VITALS: BP 124/63; PULSE 95; RESP 20
[2019-04-30] VITALS (15 sets, daily range): BP systolic 110–139; BP diastolic 55–74; PULSE 64–115; RESP 17–22
[2019-04-30] MEDS: PIPER-TAZO 3.375 GM IV (PMX) 100 ML IVPB SCH ×2 (05:40→13:25)
[2019-04-30] MEDS: LEVOTHYROXINE 100 MCG VIAL IV SCH (05:41)
[2019-04-30] MEDS ORDERED: NALOXONE (0.4 MG/ML) INJ ONE (07:00)
[2019-04-30] MEDS ORDERED: NEOSTIGMINE 3 MG/3 ML SYRINGE ONE ×2 (07:00→19:10)
[2019-04-30] MEDS ORDERED: GLYCOPYRROLATE 0.4 MG INJ ONE ×2 (07:00→19:10)
[2019-04-30] MEDS: FAMOTIDINE 20 MG INJ IV SCH ×2 (09:04→21:56)
[2019-04-30] MEDS: DEXTROSE 5%-0.45% NACL 1,000 ML IV SCH ×2 (09:04→10:07)
--- NOTE | 2019-04-30 12:45 | PN ---
Date/Time of Note Date/Time of Note DATE: 04/30/19 TIME: 12:42 Assessment/Plan Lines/Catheters IV Catheter Type (from Nrs): Peripheral IV Assessment/Plan Chief Complaint/Hosp Course 1. Gallstone pancreatitis: Improved -Aggressive IV Fluid -Okay for liquid diet -Pain management 2. Cholelithiasis, concern for cholecystitis: -Discussed surgical options with patient and patient agreeable for cholecystectomy> today -Antibiotics 3.Leukocytosis:resolved -As above -Trend 4. Microcytic hypochromic anemia: -Monitor and transfuse as needed -Further work-up per medical team 5. Hypothyroidism -Medical management 6. Overweight BMI: 25 -diet and exercise optimization -encourage weight loss 7. Trace susanna pl effussion -fluid mgt Thank you. Patient seen and examined in collaboration with Dr. Freddie Strange. Subjective 24 Hr Interval Summary No fevers, chills, sob, congested cough, cp, palpitations, simms, dizziness, n/v/d/dysuria. OR today. Exam/Review of Systems Vital Signs Vitals Vital Signs Date Temp Pulse Resp B/P (MAP) Pulse Ox O2 O2 Flow FiO2 Time Delivery Rate 04/30/19 98.1 64 18 139/64 91 Room Air 07:49 (89) Intake and Output 04/29/19 04/29/19 04/30/19 1515:00 23:00 07:00 IntakeIntake Total 300 ml 1400 ml 700 ml BalanceBalance 300 ml 1400 ml 700 ml Exam Free Text/Dictation Constitutional: alert, oriented Psych: nl mood/affect; No anxiety Head: normocephalic, atraumatic Eyes: nl conjunctiva, EOMI, nl lids, nl sclera ENMT: nl external ears & nose, nl lips & teeth, mucosa pink and moist Neck: supple, non-tender; No jvd Respiratory: normal air movement; No congested cough Cardiovascular: regular rate and rhythm, nl pulses; No edema Gastrointestinal: soft, tender (Bilateral upper quadrants; negative Valle's by palpation) Genitourinary - Female: nl external genitalia Musculoskeletal: nl extremities to inspection, nl gait and stance Extremities: normal pulses Neurological: nl mental status, nl speech, nl strength Skin: No rash or lesions Lymph: nl lymph nodes Results Result Diagram: 04/30/1944504/30/19445 MECCA KIM NP Apr 30, 2019 12:45
--- NOTE | 2019-04-30 15:58 | PN ---
Date/Time of Note Date/Time of Note DATE: 04/30/19 TIME: 15:54 Assessment/Plan VTE Prophylaxis Risk score (from Ns)>0 risk: 2 SCD applied (from Ns): Yes Pharmacological prophylaxis: heparin Lines/Catheters IV Catheter Type (from [facility]): Peripheral IV Assessment/Plan Assessment/Plan Assessment: Gallstone pancreatitis- imporved -MRCP-Cholelithiasis is present with indeterminate finding for cholecystitis. No intraductal stones are visible on MRCP Cholecystitis versus symptomatic cholelithiasis Elevated LFTs with normal bilirubin-resolved Microcytic anemia Hypertension Hypothyroidism Plan: Lap jameson today Continue supportive care Patient seen in collaboration with Dr. Osborne Subjective: Course reviewed with nursing staff Patient interviewed and examined All labs, imaging and other results reviewed The patient is currently n.p.o. for lap jameson. Complaining of mild epigastric pain on palpation. Liver function test is normal. Blood count is trending down. Continue supportive care. PHYSICAL EXAMINATION: GENERAL: Well developed, well nourished, alert & oriented x 3, in no acute distress SKIN: No lesions HEAD: Normocephalic, atraumatic, no tenderness. EYES: Pupils equal reactive to light, no discharge. EARS/NOSE AND THROAT: Ears normal, nose normal, oropharynx normal, oral membranes well hydrated without lesions. NECK: Supple, no masses,. CHEST: Inspection within normal limits. CARDIOVASCULAR: Heart: Regular rate and rhythm, RESPIRATORY: Lungs clear to auscultation GASTROINTESTINAL AND LIVER: Abdomen: Soft, epigastric pain, normoactive bowel sounds. Rectal: Deferred. EXTREMITIES: No cyanosis, clubbing or edema. Result Diagram: 04/30/19 0446 04/30/19 0446 Results 24hrs Laboratory Tests Test 04/30/19 04:46 White Blood Count 10.6 Red Blood Count 4.19 L Hemoglobin 10.4 L Hematocrit 32.8 L Mean Corpuscular Volume 78.3 L Mean Corpuscular Hemoglobin 24.8 L Mean Corpuscular Hemoglobin Concent 31.7 L Red Cell Distribution Width 14.8 H Platelet Count 187 Mean Platelet Volume 9.5 Immature Granulocytes % 1.100 H Neutrophils % 78.6 H Lymphocytes % 13.1 L Monocytes % 6.9 Eosinophils % 0.0 Basophils % 0.3 Nucleated Red Blood Cells % 0.0 Immature Granulocytes # 0.120 H Neutrophils # 8.3 H Lymphocytes # 1.4 Monocytes # 0.7 Eosinophils # 0.0 Basophils # 0.0 Nucleated Red Blood Cells # 0.0 Sodium Level 141 Potassium Level 3.6 Chloride Level 106 Carbon Dioxide Level 27 Anion Gap 8 Blood Urea Nitrogen 6 L Creatinine 0.58 Est Glomerular Filtrat Rate mL/min > 60 Glucose Level 126 Calcium Level 8.3 L Phosphorus Level 2.9 Magnesium Level 2.2 Total Bilirubin 0.7 Direct Bilirubin 0.00 Indirect Bilirubin 0.7 Aspartate Amino Transf (AST/SGOT) 23 Alanine Aminotransferase (ALT/SGPT) 34 Alkaline Phosphatase 85 Total Protein 6.9 Albumin 3.6 Globulin 3.30 H Albumin/Globulin Ratio 1.09 Lipase 283 CC: CARLOS OSBORNE MD ; Exam/Review of Systems Exam Vitals Vital Signs Date Temp Pulse Resp B/P (MAP) Pulse Ox O2 O2 Flow FiO2 Time Delivery Rate 04/30/19 98.2 84 18 120/59 92 Room Air 14:38 (79) Intake and Output 04/29/19 04/29/19 04/30/19 1515:00 23:00 07:00 IntakeIntake Total 300 ml 1400 ml 700 ml BalanceBalance 300 ml 1400 ml 700 ml Results Results 24hrs Laboratory Tests Test 04/30/19 04:46 White Blood Count 10.6 Red Blood Count 4.19 L Hemoglobin 10.4 L Hematocrit 32.8 L Mean Corpuscular Volume 78.3 L Mean Corpuscular Hemoglobin 24.8 L Mean Corpuscular Hemoglobin Concent 31.7 L Red Cell Distribution Width 14.8 H Platelet Count 187 Mean Platelet Volume 9.5 Immature Granulocytes % 1.100 H Neutrophils % 78.6 H Lymphocytes % 13.1 L Monocytes % 6.9 Eosinophils % 0.0 Basophils % 0.3 Nucleated Red Blood Cells % 0.0 Immature Granulocytes # 0.120 H Neutrophils # 8.3 H Lymphocytes # 1.4 Monocytes # 0.7 Eosinophils # 0.0 Basophils # 0.0 Nucleated Red Blood Cells # 0.0 Sodium Level 141 Potassium Level 3.6 Chloride Level 106 Carbon Dioxide Level 27 Anion Gap 8 Blood Urea Nitrogen 6 L Creatinine 0.58 Est Glomerular Filtrat Rate mL/min > 60 Glucose Level 126 Calcium Level 8.3 L Phosphorus Level 2.9 Magnesium Level 2.2 Total Bilirubin 0.7 Direct Bilirubin 0.00 Indirect Bilirubin 0.7 Aspartate Amino Transf (AST/SGOT) 23 Alanine Aminotransferase (ALT/SGPT) 34 Alkaline Phosphatase 85 Total Protein 6.9 Albumin 3.6 Globulin 3.30 H Albumin/Globulin Ratio 1.09 Lipase 283 Medications Medication Current Medications Dextrose/Sodium Chloride 1,000 ml @ 100 mls/hr Q10H IV Last administered on 04/30/19 10:07; Admin Dose 100 MLS/HR; Start 04/27/19 at 22:00 Piperacillin Sod/ Tazobactam Sod 100 ml @ 200 mls/hr Q8 IVPB Last administered on 04/30/19 13:25; Admin Dose 200 MLS/HR; Start 04/27/19 at 22:00 Ondansetron HCl (Zofran Inj) 4 mg Q4 PRN IV nausea; Start 04/27/19 at 22:00 Morphine Sulfate (morphine) 2 mg Q3 PRN IV pain Last administered on 04/29/19 13:06; Admin Dose 2 MG; Start 04/27/19 at 22:00 Levothyroxine Sodium (Synthroid Iv) 20 mcg DAILY@06 IV Last administered on 04/30/19 05:41; Admin Dose 20 MCG; Start 04/28/19 at 06:00 Famotidine (Pepcid Iv) 20 mg BID IV Last administered on 04/30/19 09:04; Admin Dose 20 MG; Start 04/28/19 at 21:00 Heparin Sodium (Porcine) (Heparin (5000 Units/1ml)) 5,000 unit BID SC Last ad ministered on 04/29/19 08:42; Admin Dose 5,000 UNIT; Start 04/28/19 at 21:00; Status Hold Acetaminophen (Tylenol Tab) 1,000 mg Q6H PRN PO MILD PAIN(1-3)OR ELEVATED TEMP Last administered on 04/28/19 22:33; Admin Dose 1,000 MG; Start 04/28/19 at 21:30 GALO BOWIE NP Apr 30, 2019 15:58
[2019-04-30] MEDS ORDERED: MIDAZOLAM 1 MG/ML 2 ML INJ ONE ×2 (17:22→20:40)
[2019-04-30] MEDS ORDERED: PROPOFOL 20 ML ONE (17:22)
[2019-04-30] MEDS ORDERED: ROCURONIUM 50 MG INJ ONE (17:22)
[2019-04-30] MEDS ORDERED: ONDANSETRON 4 MG INJ ONE (17:23)
[2019-04-30] MEDS ORDERED: KETOROLAC 30 MG INJ ONE (17:23)
[2019-04-30] MEDS ORDERED: BUPIVACAINE 0.25%/EPI (SDV) 30 ML INJ ONE (17:39)
[2019-04-30] MEDS ORDERED: IOHEXOL 300MG/ML 30 ML BTL ONE (17:40)
[2019-04-30] MEDS ORDERED: LIDOCAINE 1% (MPF) 30 ML INJ ONE (17:40)
[2019-04-30] MEDS ORDERED: BUPIVACAINE 0.25%/EPI (SDV) 30 ML INJ INJ ONE (17:45)
[2019-04-30] MEDS ORDERED: LIDOCAINE 1% (MPF) 30 ML INJ INJ ONE (17:45)
--- NOTE | 2019-04-30 18:16 | PREAC ---
Date/Time of Note Date/Time of Note DATE: 04/30/19 TIME: 18:14 Anesthesia Eval and Record Evaluation Time Pre-Procedure Interview DATE: 04/30/19 TIME: 18:14 Age 59 Sex female NPO: 8 hrs Preoperative diagnosis Cholecystitis Planned procedure Open Cholecystectomy Past Medical History Past Medical History: Includes Cardio: HTN Endo: Hypothyroid Surgery & Anesthesia Issues No known issue Meds Anticoagulation: No Beta Cam within 24 hr: No Reason Beta Cam not given: Pt. not on B-Cam Active Scripts Ondansetron Hcl* (Zofran*) 4 Mg Tablet, 4 MG PO Q8H PRN for NAUSEA AND/OR VOMITING, #30 TAB Prov:JEREMI LOPEZ MD 04/27/19 Ibuprofen* (Motrin*) 600 Mg Tab, 600 MG PO Q8 PRN for PAIN, #30 TAB Prov:JEREMI LOPEZ MD 04/27/19 Cephalexin* (Keflex*) 500 Mg Capsule, 500 MG PO QID for 7 Days, CAP Prov:JEREMI LOPEZ MD 04/27/19 Reported Medications Lisinopril* (Lisinopril*) 10 Mg Tablet, 10 MG PO DAILY, #30 TAB 04/27/19 Levothyroxine Sodium* (Levothyroxine Sodium*) 25 Mcg Tablet, 25 MCG PO BEFORE BREAKFAST, #30 TAB 04/27/19 Current Medications Dextrose/Sodium Chloride 1,000 ml @ 100 mls/hr Q10H IV Last administered on 04/30/19at 10:07; Admin Dose 100 MLS/HR; Start 04/27/19 at 22:00 Piperacillin Sod/ Tazobactam Sod 100 ml @ 200 mls/hr Q8 IVPB Last administered on 04/30/19at 13:25; Admin Dose 200 MLS/HR; Start 04/27/19 at 22:00 Ondansetron HCl (Zofran Inj) 4 mg Q4 PRN IV nausea; Start 04/27/19 at 22:00 Morphine Sulfate (morphine) 2 mg Q3 PRN IV pain Last administered on 04/29/19at 13:06; Admin Dose 2 MG; Start 04/27/19 at 22:00 Levothyroxine Sodium (Synthroid Iv) 20 mcg DAILY@06 IV Last administered on 04/30/19at 05:41; Admin Dose 20 MCG; Start 04/28/19 at 06:00 Famotidine (Pepcid Iv) 20 mg BID IV Last administered on 04/30/19at 09:04; Admin Dose 20 MG; Start 04/28/19 at 21:00 Heparin Sodium (Porcine) (Heparin (5000 Units/1ml)) 5,000 unit BID SC Last administered on 04/29/19at 08:42; Admin Dose 5,000 UNIT; Start 04/28/19 at 21:00; Status Hold Acetaminophen (Tylenol Tab) 1,000 mg Q6H PRN PO MILD PAIN(1-3)OR ELEVATED TEMP Last administered on 04/28/19at 22:33; Admin Dose 1,000 MG; Start 04/28/19 at 21:30 Meds reviewed: Yes Allergies Coded Allergies: No Known Allergy (Unverified , 04/27/19) Allergies Reviewed: Yes Labs/Studies Labs Reviewed: Reviewed by anesthesiologist Result Diagram: 04/30/19 0446 04/30/19 0446 Laboratory Tests 04/30/19 04:46 test: N/A Pre-procedure Exam Last vitals Vital Signs Date Temp Pulse Resp B/P (MAP) Pulse Ox O2 O2 Flow FiO2 Time Delivery Rate 04/30/19 98.2 84 18 120/59 92 Room Air 14:38 (79) Airway: Adequate mouth opening Mallampati: Mallampati II Teeth: Normal Lung: Normal Heart: Normal ASA Physical Status ASA physical status: 2 Emergency: None Planned Anesthetic General/MAC: ETT Pre-operative Attestations Prior to commencing anesthesia and surgery, the patient was re-evaluated, there was verification of: *The patient's identity *The results of appropriate recent lab work and preoperative vital signs *The above evaluation not changing prior to induction *Anesthetic plan, risk benefits, alternative and complications discussed with patient/family; questions answered; patient/family understands, accepts and wishes to proceed. SRINIVASA SOLANO MD Apr 30, 2019 18:16
--- NOTE | 2019-04-30 19:58 | OPR ---
Date/Time of Note Date/Time of Note DATE: 04/30/19 TIME: 19:53 Operative Report Free Text/Dictation Preoperative Diagnosis: Symptomatic cholelithiasis Gallstone pancreatitis Postoperative Diagnosis: Symptomatic cholelithiasis Gallstone pancreatitis Abnormal liver color Operation(s) Performed: 1. 3 port laparoscopic cholecystectomy 2. Laparoscopic liver wedge resection biopsy 3. Local anesthetic [place], [id number] 4. Laparoscopic guided bilateral transversus abdominis plane block Surgeon: Sharonda Palomo MD Fence Erector Supervisor: Rosalia Lindquist NP Anesthesia: general, local, & regional Anesthesiologist: Chaz Maria MD Estimated Blood Loss: Less than 50 ml's Specimens: Gallbladder Liver Tubes/Drains: None Complications: None Pt Condition Post Procedure: stable Disposition: PACU Indications: 59-year-old female with gallstones, pancreatitis, and abdominal pain here for cholecystectomy. Risks include but are not limited to bleeding, infection, abscess, seroma, damage to intestines, damage to the liver, damage to biliary tree, hernia formation, chronic pain, biloma, need for reoperations or further surgeries, MO, stroke, PE, DVT, pneumonia, organ failures, or even . Procedure Description: Patient was brought and placed supine on the operating table SCDs were placed, preoperative antibiotics were administered, all pressure points were well- padded, and after induction of anesthesia patient was prepped and draped in usual sterile fashion and timeout was performed. Incision was made in the supraumbilical region, Veress needle was safely placed and inserted, and after negative SIP test abdomen was insufflated to 15mmHg with CO2. Laparoscopy was performed with a 5 mm 30 scope. No injuries were identified. The liver looks somewhat abnormal color. Gallbladder is without evidence of active infection. 12 mm port is placed in subxiphoid under direct visualization followed by another 5 mm port in the right upper quadrant. All port sites were injected with quarter percent Marcaine with epi and 1% lidocaine prior to any incisions. Bilateral transversus abdominis plane block was performed under laparoscopic visualization to aid with pain control intra-and postoperatively. Patient was placed in reverse Trendelenburg and right side up on gallbladder was retracted superolaterally. Using electrocautery and blunt dissection I was able to identify the cystic artery and cystic duct. The duct tapered into the gallbladder. Full critical angle view was identified. Both structures were clipped twice proximally and once distally and transected. The gallbladder was taken off the liver with electrocautery. Hemostasis was obtained. Gallbladder was placed in an Endo Catch bag and removed through the subxiphoid port site. There was complete hemostasis. Due to the abnormality of the liver decision was made to perform liver wedge resection which was done with electrocautery and scissor with complete hemostasis right after. The specimen was sent to pathology for further evaluation. 12 mm made port site fascia was closed with Endo Close of an 0 Vicryl in a [id number] manner. Ports and CO2 were removed under direct visualization. Next complete hemostasis. Wounds were thoroughly irrigated skin was closed with 4-0 Monocryl in subcuticular fashion. Dermabond was applied. Patient was extubated and transferred to recovery room in stable condition and all counts were correct and the end of the operation 2. SHARONDA PALOMO MD Apr 30, 2019 19:58
[2019-04-30] MEDS ORDERED: HYDROmorphONE 1 MG/5 ML IV SYRINGE IV PRN (20:00)
[2019-04-30] MEDS ORDERED: morphine 2 MG INJ IV PRN (20:00)
[2019-04-30] MEDS ORDERED: ONDANSETRON 4 MG INJ IV PRN (20:00)
[2019-04-30] MEDS ORDERED: HYDROCODONE/APAP (5/325) TAB PO PRN ×2 (20:00)
--- NOTE | 2019-04-30 20:01 | PN ---
Date/Time of Note Date/Time of Note DATE: 04/30/19 TIME: 20:00 Assessment/Plan VTE Prophylaxis Risk score (from Nsg)>0 risk: 2 SCD applied (from Nsg): Yes Pharmacological prophylaxis: heparin Lines/Catheters IV Catheter Type (from Nrsg): Peripheral IV Assessment/Plan Hospital Course 59 female with history of HTN, hypothyroidism who PW epigastric and RUQ abd pain in the setting of gallstone pancreatitis . MRCP was unremarkable for pathology in the biliary tract and suggestive of cholecystitis . General surgery was consulted for cholecystectomy . Lipase significantly improved . She underwent laparoscopic cholecystectomy with liver wedge resection biopsy given abnormal liver color on 04/[address] Strange - Pain and nausea management - IV Zosyn - Post op care - DC planing tomorrow AM - Follow up with biopsy results - PPX: Heparin and Pepcid Problems: (1) Acute cholecystitis (2) Acute gallstone pancreatitis Status: Acute (3) RUQ abdominal pain Result Diagram: 04/30/19 0446 04/30/19 0446 Results 24hrs Laboratory Tests Test 04/30/19 04:46 White Blood Count 10.6 Red Blood Count 4.19 L Hemoglobin 10.4 L Hematocrit 32.8 L Mean Corpuscular Volume 78.3 L Mean Corpuscular Hemoglobin 24.8 L Mean Corpuscular Hemoglobin Concent 31.7 L Red Cell Distribution Width 14.8 H Platelet Count 187 Mean Platelet Volume 9.5 Immature Granulocytes % 1.100 H Neutrophils % 78.6 H Lymphocytes % 13.1 L Monocytes % 6.9 Eosinophils % 0.0 Basophils % 0.3 Nucleated Red Blood Cells % 0.0 Immature Granulocytes # 0.120 H Neutrophils # 8.3 H Lymphocytes # 1.4 Monocytes # 0.7 Eosinophils # 0.0 Basophils # 0.0 Nucleated Red Blood Cells # 0.0 Sodium Level 141 Potassium Level 3.6 Chloride Level 106 Carbon Dioxide Level 27 Anion Gap 8 Blood Urea Nitrogen 6 L Creatinine 0.58 Est Glomerular Filtrat Rate mL/min > 60 Glucose Level 126 Calcium Level 8.3 L Phosphorus Level 2.9 Magnesium Level 2.2 Total Bilirubin 0.7 Direct Bilirubin 0.00 Indirect Bilirubin 0.7 Aspartate Amino Transf (AST/SGOT) 23 Alanine Aminotransferase (ALT/SGPT) 34 Alkaline Phosphatase 85 Total Protein 6.9 Albumin 3.6 Globulin 3.30 H Albumin/Globulin Ratio 1.09 Lipase 283 Exam/Review of Systems Exam Vitals Vital Signs Date Temp Pulse Resp B/P (MAP) Pulse Ox O2 O2 Flow FiO2 Time Delivery Rate 04/30/19 98.2 84 18 120/59 92 Room Air 14:38 (79) Intake and Output 04/29/19 04/29/19 04/30/19 1515:00 23:00 07:00 IntakeIntake Total 300 ml 1400 ml 700 ml BalanceBalance 300 ml 1400 ml 700 ml Exam Gen.: In no acute distress, pleasant and cooperative Eyes: Anicteric, conjunctiva normal, PERRLA, EOM intact HEENT: Normocephalic, atraumatic, hearing grossly intact, oral mucosa moist, no oral lesions Neck: Supple, no masses, trachea midline Cardiovascular: Regular rate and rhythm, no peripheral edema, no murmurs, no gallops, no rubs Respiratory: Clear to auscultation bilaterally, no use of accessory muscles of respiration, no wheezes, expiration not prolonged Extremities: No cyanosis, no edema, no calf tenderness, pulses bilaterally palpable, extremities warm and perfused Abdomen: Soft, not distended, tender to light palpation in right upper quadrant and epigastric area, bowel sounds present, no guarding, no rebound Neurological: Alert and oriented x3, speech normal, CN 2-12 no deficit, no motor or sensory deficit, coordination normal : No Delarosa catheter Dermatologic no rash, no ulcers Heme: No acute bleeding, no ecchymosis or petechia Psych: No anxiety depression, mood and affect appropriate Results Results 24hrs Laboratory Tests Test 04/30/19 04:46 White Blood Count 10.6 Red Blood Count 4.19 L Hemoglobin 10.4 L Hematocrit 32.8 L Mean Corpuscular Volume 78.3 L Mean Corpuscular Hemoglobin 24.8 L Mean Corpuscular Hemoglobin Concent 31.7 L Red Cell Distribution Width 14.8 H Platelet Count 187 Mean Platelet Volume 9.5 Immature Granulocytes % 1.100 H Neutrophils % 78.6 H Lymphocytes % 13.1 L Monocytes % 6.9 Eosinophils % 0.0 Basophils % 0.3 Nucleated Red Blood Cells % 0.0 Immature Granulocytes # 0.120 H Neutrophils # 8.3 H Lymphocytes # 1.4 Monocytes # 0.7 Eosinophils # 0.0 Basophils # 0.0 Nucleated Red Blood Cells # 0.0 Sodium Level 141 Potassium Level 3.6 Chloride Level 106 Carbon Dioxide Level 27 Anion Gap 8 Blood Urea Nitrogen 6 L Creatinine 0.58 Est Glomerular Filtrat Rate mL/min > 60 Glucose Level 126 Calcium Level 8.3 L Phosphorus Level 2.9 Magnesium Level 2.2 Total Bilirubin 0.7 Direct Bilirubin 0.00 Indirect Bilirubin 0.7 Aspartate Amino Transf (AST/SGOT) 23 Alanine Aminotransferase (ALT/SGPT) 34 Alkaline Phosphatase 85 Total Protein 6.9 Albumin 3.6 Globulin 3.30 H Albumin/Globulin Ratio 1.09 Lipase 283 Medications Medication Current Medications Dextrose/Sodium Chloride 1,000 ml @ 100 mls/hr Q10H IV Last administered on 04/30/19at 10:07; Admin Dose 100 MLS/HR; Start 04/27/19 at 22:00 Ondansetron HCl (Zofran Inj) 4 mg Q4 PRN IV nausea; Start 04/27/19 at 22:00 Morphine Sulfate (morphine) 2 mg Q3 PRN IV pain Last administered on 04/29/19at 13:06; Admin Dose 2 MG; Start 04/27/19 at 22:00 Levothyroxine Sodium (Synthroid Iv) 20 mcg DAILY@06 IV Last administered on 04/30/19at 05:41; Admin Dose 20 MCG; Start 04/28/19 at 06:00 Famotidine (Pepcid Iv) 20 mg BID IV Last administered on 04/30/19at 09:04; Admin Dose 20 MG; Start 04/28/19 at 21:00 Heparin Sodium (Porcine) (Heparin (5000 Units/1ml)) 5,000 unit BID SC Last administered on 04/29/19at 08:42; Admin Dose 5,000 UNIT; Start 04/28/19 at 21:00; Status Hold Acetaminophen (Tylenol Tab) 1,000 mg Q6H PRN PO MILD PAIN(1-3)OR ELEVATED TEMP Last administered on 04/28/19at 22:33; Admin Dose 1,000 MG; Start 04/28/19 at 21:30 Hydromorphone HCl (Dilaudid) 0.4 mg PACU PRN IV MOD PAIN 4-6; Start 04/30/19 at 20:00; Stop 05/01/19 at 02:00 Fentanyl (Sublimaze) 25 mcg PACU ORDER PRN IV MILD PAIN 1-3; Start 04/30/19 at 20:00; Stop 05/01/19 at 02:00 Ondansetron HCl (Zofran Inj) 4 mg PACU ORDER PRN IV NAUSEA/VOMITING; Start 04/30/19 at 20:00; Stop 05/01/19 at 02:00 Acetaminophen/ Hydrocodone Bitart ([place] (5/325)) 2 tab Q4H PRN PO Pain 6-10; Start 04/30/19 at 20:00; Status UNV Acetaminophen/ Hydrocodone Bitart ([place] (5/325)) 1 tab Q4H PRN PO Pain 1-5; Start 04/30/19 at 20:00; Status UNV Morphine Sulfate (morphine) 2 mg Q2H PRN IV Breakthrough PAIN; Start 04/30/19 at 20:00; Status UNV LANIE BANKS MD Apr 30, 2019 20:01
--- NOTE | 2019-04-30 20:29 | PAC ---
Date/Time of Note Date/Time of Note DATE: 04/30/19 TIME: 20:29 Post-Anesthesia Notes Post-Anesthesia Note Last documented vital signs Vital Signs Date Temp Pulse Resp B/P (MAP) Pulse Ox O2 O2 Flow FiO2 Time Delivery Rate 04/30/19 98.2 84 18 120/59 92 Room Air 14:38 (79) Activity: WNL Respiratory function: WNL Cardiovascular function: WNL Mental status: Baseline Pain reasonably controlled: Yes Hydration appropriate: Yes Nausea/Vomiting absent: Yes SRINIVASA SOLANO MD Apr 30, 2019 20:29
[2019-04-30] MEDS: FENTAnyl 50 MCG/ML VIAL IV PRN ×2 (20:35→20:54)
[2019-04-30] MEDS ORDERED: MIDAZOLAM 1 MG/ML 2 ML INJ IV ONE (21:00)
[2019-05-01] VITALS: BP 112/57; PULSE 80; RESP 20
[2019-05-01 02:33] VITALS: BP 131/61; PULSE 80; RESP 18
[2019-05-01] MEDS ORDERED: LEVOTHYROXINE 25 MCG TAB PO SCH (06:00)
[2019-05-01 07:19] VITALS: BP 129/61; RESP 14
[2019-05-01] MEDS: FAMOTIDINE 20 MG INJ IV SCH (08:32)
--- NOTE | 2019-05-01 12:55 | PN ---
Date/Time of Note Date/Time of Note DATE: 05/01/19 TIME: 12:52 Assessment/Plan VTE Prophylaxis Risk score (from Ns)>0 risk: 2 SCD applied (from Nsg): Yes Pharmacological prophylaxis: heparin Lines/Catheters IV [facility]ter Type (from [facility]): Peripheral IV Assessment/Plan Assessment/Plan Assessment: Gallstone pancreatitis- imporved -MRCP-Cholelithiasis is present with indeterminate finding for cholecystitis. No intraductal stones are visible on MRCP Cholecystitis versus symptomatic cholelithiasis Status post cholecystectomy 04/30/2019 Elevated LFTs with normal bilirubin-resolved Microcytic anemia Hypertension Hypothyroidism Plan: Continue present regimen Monitor LFTs Patient seen in collaboration with Dr. Osborne Subjective: Course reviewed with nursing staff Patient interviewed and examined All labs, imaging and other results reviewed Patient is doing well postop day #1 after cholecystectomy. She is complaining of mild abdominal pain at the site of surgical incisions. Patient is passing flatus and stool. Currently on the regular diet. Tolerating well without increase in abdominal pain. Discharge planning for tomorrow. PHYSICAL EXAMINATION: GENERAL: Well developed, well nourished, alert & oriented x 3, in no acute distress SKIN: No lesions HEAD: Normocephalic, atraumatic, no tenderness. EYES: Pupils equal reactive to light, no discharge. EARS/NOSE AND THROAT: Ears normal, nose normal, oropharynx normal, oral membranes well hydrated without lesions. NECK: Supple, no masses,. CHEST: Inspection within normal limits. CARDIOVASCULAR: Heart: Regular rate and rhythm, RESPIRATORY: Lungs clear to auscultation GASTROINTESTINAL AND LIVER: Abdomen: Soft, epigastric pain, normoactive bowel sounds. Rectal: Deferred. EXTREMITIES: No cyanosis, clubbing or edema. Result Diagram: 05/01/19 0448 05/01/19 0448 Results 24hrs Laboratory Tests Test 05/01/19 04:48 White Blood Count 9.7 Red Blood Count 3.95 L Hemoglobin 9.8 L Hematocrit 30.4 L Mean Corpuscular Volume 77.0 L Mean Corpuscular Hemoglobin 24.8 L Mean Corpuscular Hemoglobin Concent 32.2 Red Cell Distribution Width 14.9 H Platelet Count 197 Mean Platelet Volume 10.2 Immature Granulocytes % 1.000 H Neutrophils % 76.7 Lymphocytes % 16.2 Monocytes % 6.0 Eosinophils % 0.0 Basophils % 0.1 Nucleated Red Blood Cells % 0.0 Immature Granulocytes # 0.100 H Neutrophils # 7.4 Lymphocytes # 1.6 Monocytes # 0.6 Eosinophils # 0.0 Basophils # 0.0 Nucleated Red Blood Cells # 0.0 Sodium Level 144 Potassium Level 3.6 Chloride Level 110 Carbon Dioxide Level 26 Anion Gap 8 Blood Urea Nitrogen 9 Creatinine 0.52 Est Glomerular Filtrat Rate mL/min > 60 Glucose Level 96 Calcium Level 8.0 L Phosphorus Level 3.9 Magnesium Level 2.2 Total Bilirubin 0.4 Direct Bilirubin 0.00 Indirect Bilirubin 0.4 Aspartate Amino Transf (AST/SGOT) 49 H Alanine Aminotransferase (ALT/SGPT) 40 Alkaline Phosphatase 91 Total Protein 6.5 Albumin 3.2 L Globulin 3.30 H Albumin/Globulin Ratio 0.96 CC: CARLOS OSBORNE MD ; Exam/Review of Systems Exam Vitals Vital Signs Date Temp Pulse Resp B/P (MAP) Pulse Ox O2 O2 Flow FiO2 Time Delivery Rate 05/01/19 98.2 14 129/61 99 Room Air 07:19 (83) 05/01/19 80 2.0 02:33 Intake and Output 04/30/19 04/30/19 05/01/19 1515:00 23:00 07:00 IntakeIntake Total 100 ml 1800 ml 500 ml OutputOutput Total 10 ml BalanceBalance 100 ml 1790 ml 500 ml Results Results 24hrs Laboratory Tests Test 05/01/19 04:48 White Blood Count 9.7 Red Blood Count 3.95 L Hemoglobin 9.8 L Hematocrit 30.4 L Mean Corpuscular Volume 77.0 L Mean Corpuscular Hemoglobin 24.8 L Mean Corpuscular Hemoglobin Concent 32.2 Red Cell Distribution Width 14.9 H Platelet Count 197 Mean Platelet Volume 10.2 Immature Granulocytes % 1.000 H Neutrophils % 76.7 Lymphocytes % 16.2 Monocytes % 6.0 Eosinophils % 0.0 Basophils % 0.1 Nucleated Red Blood Cells % 0.0 Immature Granulocytes # 0.100 H Neutrophils # 7.4 Lymphocytes # 1.6 Monocytes # 0.6 Eosinophils # 0.0 Basophils # 0.0 Nucleated Red Blood Cells # 0.0 Sodium Level 144 Potassium Level 3.6 Chloride Level 110 Carbon Dioxide Level 26 Anion Gap 8 Blood Urea Nitrogen 9 Creatinine 0.52 Est Glomerular Filtrat Rate mL/min > 60 Glucose Level 96 Calcium Level 8.0 L Phosphorus Level 3.9 Magnesium Level 2.2 Total Bilirubin 0.4 Direct Bilirubin 0.00 Indirect Bilirubin 0.4 Aspartate Amino Transf (AST/SGOT) 49 H Alanine Aminotransferase (ALT/SGPT) 40 Alkaline Phosphatase 91 Total Protein 6.5 Albumin 3.2 L Globulin 3.30 H Albumin/Globulin Ratio 0.96 Medications Medication Current Medications Ondansetron HCl (Zofran Inj) 4 mg Q4 PRN IV nausea; Start 04/27/19 at 22:00 Famotidine (Pepcid Iv) 20 mg BID IV Last administered on 05/01/19at 08:32; Admin Dose 20 MG; Start 04/28/19 at 21:00 Heparin Sodium (Porcine) (Heparin (5000 Units/1ml)) 5,000 unit BID SC Last administered on 04/29/19at 08:42; Admin Dose 5,000 UNIT; Start 04/28/19 at 21:00; Status Hold Acetaminophen (Tylenol Tab) 1,000 mg Q6H PRN PO MILD PAIN(1-3)OR ELEVATED TEMP Last administered on 04/28/19at 22:33; Admin Dose 1,000 MG; Start 04/28/19 at 21:30 Acetaminophen/ Hydrocodone Bitart ([place] (5/325)) 2 tab Q4H PRN PO Pain 6-10; Start 04/30/19 at 20:00 Acetaminophen/ Hydrocodone Bitart ([place] (5/325)) 1 tab Q4H PRN PO Pain 1-5; Start 04/30/19 at 20:00 Morphine Sulfate (morphine) 2 mg Q2H PRN IV Breakthrough PAIN; Start 04/30/19 at 20:00 Levothyroxine Sodium (Synthroid) 25 mcg DAILY@06 PO Last administered on 05/01/19at 05:49; Admin Dose 25 MCG; Start 05/01/19 at 06:00 GALO BOWIE NP May 01, 2019 12:55
--- NOTE | 2019-05-01 13:56 | PN ---
Date/Time of Note Date/Time of Note DATE: 05/01/19 TIME: 13:55 Assessment/Plan VTE Prophylaxis Risk score (from Ns)>0 risk: 2 SCD applied (from Ns): Yes Pharmacological prophylaxis: LMWH Lines/Catheters IV Catheter Type (from Nrsg): Peripheral IV Assessment/Plan Assessment/Plan 1. gall stone pancreatitis, resolving 2. s?p liver wedge biopsym follow up with dr brownlee Result Diagram: 05/01/198 05/01/198 Results 24hrs Laboratory Tests Test 05/01/19 04:48 White Blood Count 9.7 Red Blood Count 3.95 L Hemoglobin 9.8 L Hematocrit 30.4 L Mean Corpuscular Volume 77.0 L Mean Corpuscular Hemoglobin 24.8 L Mean Corpuscular Hemoglobin Concent 32.2 Red Cell Distribution Width 14.9 H Platelet Count 197 Mean Platelet Volume 10.2 Immature Granulocytes % 1.000 H Neutrophils % 76.7 Lymphocytes % 16.2 Monocytes % 6.0 Eosinophils % 0.0 Basophils % 0.1 Nucleated Red Blood Cells % 0.0 Immature Granulocytes # 0.100 H Neutrophils # 7.4 Lymphocytes # 1.6 Monocytes # 0.6 Eosinophils # 0.0 Basophils # 0.0 Nucleated Red Blood Cells # 0.0 Sodium Level 144 Potassium Level 3.6 Chloride Level 110 Carbon Dioxide Level 26 Anion Gap 8 Blood Urea Nitrogen 9 Creatinine 0.52 Est Glomerular Filtrat Rate mL/min > 60 Glucose Level 96 Calcium Level 8.0 L Phosphorus Level 3.9 Magnesium Level 2.2 Total Bilirubin 0.4 Direct Bilirubin 0.00 Indirect Bilirubin 0.4 Aspartate Amino Transf (AST/SGOT) 49 H Alanine Aminotransferase (ALT/SGPT) 40 Alkaline Phosphatase 91 Total Protein 6.5 Albumin 3.2 L Globulin 3.30 H Albumin/Globulin Ratio 0.96 Subjective 24 Hr Interval Summary Free Text/Dictation no omplaints, pain controlled, qmbulating, tolerating diet Exam/Review of Systems Exam Vitals Vital Signs Date Temp Pulse Resp B/P (MAP) Pulse Ox O2 O2 Flow FiO2 Time Delivery Rate 05/01/19 98.2 14 129/61 99 Room Air 07:19 (83) 05/01/19 80 2.0 02:33 Intake and Output 04/30/19 04/30/19 05/01/19 1515:00 23:00 07:00 IntakeIntake Total 100 ml 1800 ml 500 ml OutputOutput Total 10 ml BalanceBalance 100 ml 1790 ml 500 ml Exam nad, soft nt, ctab Results Results 24hrs Laboratory Tests Test 05/01/19 04:48 White Blood Count 9.7 Red Blood Count 3.95 L Hemoglobin 9.8 L Hematocrit 30.4 L Mean Corpuscular Volume 77.0 L Mean Corpuscular Hemoglobin 24.8 L Mean Corpuscular Hemoglobin Concent 32.2 Red Cell Distribution Width 14.9 H Platelet Count 197 Mean Platelet Volume 10.2 Immature Granulocytes % 1.000 H Neutrophils % 76.7 Lymphocytes % 16.2 Monocytes % 6.0 Eosinophils % 0.0 Basophils % 0.1 Nucleated Red Blood Cells % 0.0 Immature Granulocytes # 0.100 H Neutrophils # 7.4 Lymphocytes # 1.6 Monocytes # 0.6 Eosinophils # 0.0 Basophils # 0.0 Nucleated Red Blood Cells # 0.0 Sodium Level 144 Potassium Level 3.6 Chloride Level 110 Carbon Dioxide Level 26 Anion Gap 8 Blood Urea Nitrogen 9 Creatinine 0.52 Est Glomerular Filtrat Rate mL/min > 60 Glucose Level 96 Calcium Level 8.0 L Phosphorus Level 3.9 Magnesium Level 2.2 Total Bilirubin 0.4 Direct Bilirubin 0.00 Indirect Bilirubin 0.4 Aspartate Amino Transf (AST/SGOT) 49 H Alanine Aminotransferase (ALT/SGPT) 40 Alkaline Phosphatase 91 Total Protein 6.5 Albumin 3.2 L Globulin 3.30 H Albumin/Globulin Ratio 0.96 Medications Medication Current Medications Ondansetron HCl (Zofran Inj) 4 mg Q4 PRN IV nausea; Start 04/27/19 at 22:00 Famotidine (Pepcid Iv) 20 mg BID IV Last administered on 05/01/19at 08:32; Admin Dose 20 MG; Start 04/28/19 at 21:00 Heparin Sodium (Porcine) (Heparin (5000 Units/1ml)) 5,000 unit BID SC Last administered on 04/29/19at 08:42; Admin Dose 5,000 UNIT; Start 04/28/19 at 21:00; Status Hold Acetaminophen (Tylenol Tab) 1,000 mg Q6H PRN PO MILD PAIN(1-3)OR ELEVATED TEMP Last administered on 04/28/19at 22:33; Admin Dose 1,000 MG; Start 04/28/19 at 21:30 Acetaminophen/ Hydrocodone Bitart ([place] (5/325)) 2 tab Q4H PRN PO Pain 6-10; Start 04/30/19 at 20:00 Acetaminophen/ Hydrocodone Bitart ([place] (5/325)) 1 tab Q4H PRN PO Pain 1-5; Start 04/30/19 at 20:00 Morphine Sulfate (morphine) 2 mg Q2H PRN IV Breakthrough PAIN; Start 04/30/19 at 20:00 Levothyroxine Sodium (Synthroid) 25 mcg DAILY@06 PO Last administered on 05/01/19at 05:49; Admin Dose 25 MCG; Start 05/01/19 at 06:00 SPIKE ALEXANDER MD May 01, 2019 13:56
--- NOTE | 2019-05-01 13:58 | PDOCDIS ---
Discharge Instructions DIAGNOSIS Discharge Diagnosis gll stone pancreatitis, s/p lap jameson CONDITION [id number] Patient Condition: [id number] Good HOME CARE INSTRUCTIONS: [id number] Diet Instructions: [id number] Regular ACTIVITY: [id number] Activity Restrictions: [id number] Slowly Increase Activity Rest between Activity Avoid Heavy Housework [id number] Bathing Restrictions: [id number] Shower FOLLOW UP/APPOINTMENTS Follow-up Plan 1, [facility] [address] banks 1 week, obtain results of liver biopsy rom dr banks at [facility] follow up SPIKE ALEXANDER MD May 01, 2019 13:58
--- NOTE | 2019-05-01 14:00 | DS ---
Date/Time of Note Date/Time of Note DATE: 05/01/19 TIME: 13:58 Discharge Summary Admission/Discharge Info Admit Date/Time Apr 27, 2019 at 20:31 Discharge Date/Time Discharge Diagnosis gll stone pancreatitis, s/p lap jameson Patient Condition: Good Hospital Course patient admit with abdominal pain and omiting, found to have gall stone pancreatitis, mrcp did not show definitive stones within the duct. Presley underwent lap jameson and tolerated very well and is discharge home durin lap jameson a liver biopsy is performed for abnormal gross appearance of the liver, results are pending, patient is instructed to follow up result with dr banks [place] Meds Active Scripts Ondansetron Hcl* (Zofran*) 4 Mg Tablet, 4 MG PO Q8H PRN for NAUSEA AND/OR VOMITING, #30 TAB Prov:JEREMI LOPEZ MD 04/27/19 Ibuprofen* (Motrin*) 600 Mg Tab, 600 MG PO Q8 PRN for PAIN, #30 TAB Prov:JEREMI LOPEZ MD 04/27/19 Cephalexin* (Keflex*) 500 Mg Capsule, 500 MG PO QID for 7 Days, CAP Prov:JEREMI LOPEZ MD 04/27/19 Reported Medications Lisinopril* (Lisinopril*) 10 Mg Tablet, 10 MG PO DAILY, #30 TAB 04/27/19 Levothyroxine Sodium* (Levothyroxine Sodium*) 25 Mcg Tablet, 25 MCG PO BEFORE BREAKFAST, #30 TAB 04/27/19 Follow-up Plan 1, [facility] [address] banks 1 week, obtain results of liver biopsy [facility] Provider Not On Staff Doctor Time spent on discharge: > 30 minutes Pending Labs Laboratory Tests Test 05/01/19 04:48 White Blood Count 9.7 10^3/ul (4.8-10.8) Red Blood Count 3.95 10^6/ul (4.20-5.40) Hemoglobin 9.8 g/dl (12.0-16.0) Hematocrit 30.4 % (37.0-47.0) Mean Corpuscular Volume 77.0 fl (82.0-101.0) Mean Corpuscular Hemoglobin 24.8 pg (29.0-33.0) Mean Corpuscular Hemoglobin Concent 32.2 g/dl (32.0-37.0) Red Cell Distribution Width 14.9 % (11.5-14.5) Platelet Count 197 10^3/UL (140-415) Mean Platelet Volume 10.2 fl (7.4-10.4) Immature Granulocytes % 1.000 % (0.001-0.429) Neutrophils % 76.7 % (39.0-77.0) Lymphocytes % 16.2 % (15.0-51.0) Monocytes % 6.0 % (0.0-11.0) Eosinophils % 0.0 % (0.0-7.0) Basophils % 0.1 % (0.0-2.0) Nucleated Red Blood Cells % 0.0 /100WBC (0.0-0.0) Immature Granulocytes # 0.100 10^3/ul (0.0-0.031) Neutrophils # 7.4 10^3/ul (1.6-7.5) Lymphocytes # 1.6 10^3/ul (0.8-2.9) Monocytes # 0.6 10^3/ul (0.3-0.9) Eosinophils # 0.0 10^3/ul (0.0-0.5) Basophils # 0.0 10^3/ul (0.0-0.1) Nucleated Red Blood Cells # 0.0 10^3/ul (0.0-0.0) Sodium Level 144 mmol/L (135-144) Potassium Level 3.6 mmol/L (3.5-5.1) Chloride Level 110 mmol/L (97-110) Carbon Dioxide Level 26 mmol/L (21-31) Anion Gap 8 (5-13) Blood Urea Nitrogen 9 mg/dl (7-20) Creatinine 0.52 mg/dl (0.44-1.00) Est Glomerular Filtrat Rate mL/min > 60 mL/min (>60) Glucose Level 96 mg/dl (70-220) Calcium Level 8.0 mg/dl (8.4-10.2) Phosphorus Level 3.9 mg/dl (2.5-4.9) Magnesium Level 2.2 mg/dl (1.7-2.5) Total Bilirubin 0.4 mg/dl (0.2-1.3) Direct Bilirubin 0.00 mg/dl (0.00-0.20) Indirect Bilirubin 0.4 mg/dl (0-1.1) Aspartate Amino Transf (AST/SGOT) 49 IU/L (15-46) Alanine Aminotransferase (ALT/SGPT) 40 IU/L (13-69) Alkaline Phosphatase 91 IU/L (42-121) Total Protein 6.5 g/dl (6.1-8.1) Albumin 3.2 g/dl (3.3-4.9) Globulin 3.30 g/dl (1.3-3.2) Albumin/Globulin Ratio 0.96 SPIKE ALEXANDER MD May 01, 2019 14:00
== END 2019-05-01 16:53 | disposition home or self-care (01) | DRG 418 ==
LOC: E/R 20:20 → MS1 20:31
PROVIDERS: ADMIT Internal Medicine; ATTEND Internal Medicine
PROC: 0FB04ZX Excision of Liver, Percutaneous Endoscopic Approach, Diagnostic (ICD-10-PCS; 2019-04-30)
PROC: 0FT44ZZ Resection of Gallbladder, Percutaneous Endoscopic Approach (ICD-10-PCS; principal; 2019-04-30 16:30)
DX: K85.10 Biliary acute pancreatitis without necrosis or infection (principal); N39.0 Urinary tract infection, site not specified; K80.66 Calculus of gallbladder and bile duct with acute and chronic cholecystitis without obstruction; E03.9 Hypothyroidism, unspecified; D50.9 Iron deficiency anemia, unspecified; I10 Essential (primary) hypertension; E66.3 Overweight; K76.9 Liver disease, unspecified
CPT/HCPCS: 71045; 74181; 80053; 83690; 83735; 84100; 84703; 85025; 85610; 88304; 88307; 88313; J1170; J1644; J1885; J2250; J2270; J2310; J2405; J2543; J2710; J3010; J7030; J7042; Q9967